=== PATIENT | female | born 1970 | race Caucasian/White ===

== ENCOUNTER 2018-02-12 12:43 | Observation (INO) | payer BC ==
[2018-02-12] MEDS ORDERED: SODIUM CHLORIDE 0.9% 500 ML IV ONE (13:10)
--- NOTE | 2018-02-12 13:10 | ED ---
General Adult HPI - General Chief complaint: Chest Pain Stated complaint: chest pain, SOB Time Seen by Provider: 02/12/18 12:52 Source: patient, RN notes reviewed, old records reviewed Mode of arrival: ambulatory Limitations: no limitations - History of Present Illness Initial comments: 47-year-old female presenting for evaluation of mid chest pain which began yesterday evening. Patient's pain began while at rest. She does report she's been having some stress in her life and believes her pain is secondary to stress. She denies any upper extremity radiation. Denies nausea or vomiting. No diaphoresis. No dyspnea. No lower extremity pain or swelling. Patient has strong family history of coronary artery disease including brother at age 49 with massive [place]. Her parents both have coronary artery disease. She has a previous smoker quit approximately 6 years ago. She was recently diagnosed with hypertension but is not currently on any medication. - Related Data Home Medications Medication Instructions Recorded Confirmed Multivitamins, Thera [Multivitamin 1 tab PO DAILY 02/12/18 02/12/18 (formulary)] Allergies Allergy/AdvReac Type Severity Reaction Status Date / Time No Known Allergies Allergy Verified 02/12/18 13:20 Review of Systems ROS Statement: Those systems with pertinent positive or pertinent negative responses have been documented in the HPI. ROS Other: All systems not noted in ROS Statement are negative. Past Medical History Past Medical History: No Reported History History of Any Multi-Drug Resistant Organisms: None Reported Past Surgical History: Cholecystectomy Past Psychological History: No Psychological Hx Reported Smoking Status: Former smoker Past Alcohol Use History: Occasional Past Drug Use History: None Reported General Exam Limitations: no limitations General appearance: alert, in no apparent distress Head exam: Present: atraumatic, normocephalic Eye exam: Present: normal appearance, PERRL ENT exam: Present: normal exam Neck exam: Present: normal inspection. Absent: tenderness, meningismus Respiratory exam: Present: normal lung sounds bilaterally. Absent: respiratory distress, wheezes Cardiovascular Exam: Present: regular rate, normal rhythm GI/Abdominal exam: Present: soft. Absent: distended, tenderness Extremities exam: Present: normal inspection, normal capillary refill. Absent: pedal edema, calf tenderness Neurological exam: Present: alert, oriented X3, CN II-XII intact. Absent: motor sensory deficit Psychiatric exam: Present: normal affect, normal mood Skin exam: Present: warm, dry, intact. Absent: cyanosis, diaphoretic Course Vital Signs 02/12/18 02/12/18 02/12/18 12:45 13:09 13:37 Temperature 98 F Pulse Rate 104 H 97 86 Respiratory 20 18 18 Rate Blood Pressure 226/95 215/97 206/99 O2 Sat by Pulse 96 98 97 Oximetry 02/12/18 02/12/18 02/12/18 14:08 14:20 15:04 Temperature Pulse Rate 82 83 73 Respiratory 18 18 18 Rate Blood Pressure 202/100 188/91 163/83 O2 Sat by Pulse 98 97 97 Oximetry EKG Findings - EKG Comments: EKG Findings:: EKG: Sinus tachycardia minimal voltage criteria for LVH, artifact in leads 2 and lead 3, no ST segment elevation rate of 102, WV interval 138, QRS duration 94, QTC 463 Medical Decision Making - Medical Decision Making Sexual female presenting for evaluation chest pain. Symptoms have been present for the past 12-16 hours. She did have some pain in her back and initial blood pressure was 226 [address] For this reason CT angiography is obtained of the aorta, this is negative for aortic pathology. Laboratory studies reveal normal white blood cell count, stable hemoglobin, normal electrolytes. Troponin is negative. AST and ALT are mildly elevated, patient has no right upper quadrant pain. This is a nonspecific finding at this time. Patient is given an aspirin and labetalol in the emergency department. Repeat blood pressure is significantly improved. She is nearly chest pain-free. She will be admitted for serial cardiac enzymes and cardiology consultation. Case discussed with Dr. Guadalupe who will accept admission. - Lab Data Result diagrams: 02/12/18 12:56 02/12/18 12:56 Lab Results 02/12/18 02/12/18 02/12/18 Range/Units 12:56 12:56 12:56 WBC 9.1 (3.8-10.6) k/uL RBC 4.60 (3.80-5.40) m/uL Hgb 13.7 (11.4-16.0) gm/dL Hct 38.5 (34.0-46.0) % MCV 83.6 (80.0-100.0) fL MCH 29.9 (25.0-35.0) pg MCHC 35.7 (31.0-37.0) g/dL RDW 12.9 (11.5-15.5) % Plt Count 360 (150-450) k/uL Neutrophils % 64 % Lymphocytes % 27 % Monocytes % 5 % Eosinophils % 2 % Basophils % 1 % Neutrophils # 5.8 (1.3-7.7) k/uL Lymphocytes # 2.5 (1.0-4.8) k/uL Monocytes # 0.5 (0-1.0) k/uL Eosinophils # 0.2 (0-0.7) k/uL Basophils # 0.1 (0-0.2) k/uL PT (9.0-12.0) sec INR (<1.2) APTT (22.0-30.0) sec Sodium 143 (137-145) mmol/L Potassium 3.7 (3.5-5.1) mmol/L Chloride 104 (98-107) mmol/L Carbon Dioxide 23 (22-30) mmol/L Anion Gap 16 mmol/L BUN 12 (7-17) mg/dL Creatinine 0.70 (0.52-1.04) mg/dL Est GFR (CKD-EPI)AfAm >90 (>60 ml/min/1.73 sqM) Est GFR (CKD-EPI)NonAf >90 (>60 ml/min/1.73 sqM) Glucose 167 H (74-99) mg/dL Calcium 10.0 (8.4-10.2) mg/dL Magnesium 1.8 (1.6-2.3) mg/dL Total Bilirubin 0.6 (0.2-1.3) mg/dL AST 87 H (14-36) U/L ALT 123 H (9-52) U/L Alkaline Phosphatase 90 (38-126) U/L Total Creatine Kinase 51 (30-135) U/L CK-MB (CK-2) <0.2 (0.0-2.4) ng/mL CK-MB (CK-2) Rel Index Troponin I <0.012 (0.000-0.034) ng/mL NT-Pro-B Natriuret Pep pg/mL Total Protein 7.9 (6.3-8.2) g/dL Albumin 4.8 (3.5-5.0) g/dL 02/12/18 02/12/18 Range/Units 12:56 12:56 WBC (3.8-10.6) k/uL RBC (3.80-5.40) m/uL Hgb (11.4-16.0) gm/dL Hct (34.0-46.0) % MCV (80.0-100.0) fL MCH (25.0-35.0) pg MCHC (31.0-37.0) g/dL RDW (11.5-15.5) % Plt Count (150-450) k/uL Neutrophils % % Lymphocytes % % Monocytes % % Eosinophils % % Basophils % % Neutrophils # (1.3-7.7) k/uL Lymphocytes # (1.0-4.8) k/uL Monocytes # (0-1.0) k/uL Eosinophils # (0-0.7) k/uL Basophils # (0-0.2) k/uL PT 10.4 (9.0-12.0) sec INR 1.1 (<1.2) APTT 23.7 (22.0-30.0) sec Sodium (137-145) mmol/L Potassium (3.5-5.1) mmol/L Chloride (98-107) mmol/L Carbon Dioxide (22-30) mmol/L Anion Gap mmol/L BUN (7-17) mg/dL Creatinine (0.52-1.04) mg/dL Est GFR (CKD-EPI)AfAm (>60 ml/min/1.73 sqM) Est GFR (CKD-EPI)NonAf (>60 ml/min/1.73 sqM) Glucose (74-99) mg/dL Calcium (8.4-10.2) mg/dL Magnesium (1.6-2.3) mg/dL Total Bilirubin (0.2-1.3) mg/dL AST (14-36) U/L ALT (9-52) U/L Alkaline Phosphatase (38-126) U/L Total Creatine Kinase (30-135) U/L CK-MB (CK-2) (0.0-2.4) ng/mL CK-MB (CK-2) Rel Index Troponin I (0.000-0.034) ng/mL NT-Pro-B Natriuret Pep 54 pg/mL Total Protein (6.3-8.2) g/dL Albumin (3.5-5.0) g/dL Disposition Clinical Impression: Chest pain Disposition: ADMITTED IP TO THIS HOSP Condition: Stable Is patient prescribed a controlled substance at d/c from ED?: No Referrals: None,Stated [Primary Care Provider] - 1-2 days Decision to Admit Reason: Admit from EC Decision Date: 02/12/18 Decision Time: 15:56
[2018-02-12 13:19] LABS: Basophils # (A) 0.1 k/uL (0-0.2); Basophils % (A) 1 %; Eosinophils # (A) 0.2 k/uL (0-0.7); Eosinophils % (A) 2 %; HCT 38.5 % (34.0-46.0); HGB 13.7 gm/dL (11.4-16.0); Lymphocytes # (A) 2.5 k/uL (1.0-4.8); Lymphocytes % (A) 27 %; MCH 29.9 pg (25.0-35.0); MCHC 35.7 g/dL (31.0-37.0); MCV 83.6 fL (80.0-100.0); Mean Platelet Volume 6.5; Monocytes # (A) 0.5 k/uL (0-1.0); Monocytes % (A) 5 %; Neutrophils # (A) 5.8 k/uL (1.3-7.7); Neutrophils % (A) 64 %; Platelet Count 360 k/uL (150-450); RDW 12.9 % (11.5-15.5); WBC 9.1 k/uL (3.8-10.6)
[2018-02-12 13:32] LABS: ALT 123 U/L (9-52); AST 87 U/L (14-36); Albumin 4.8 g/dL (3.5-5.0); Alkaline Phosphatase 90 U/L (38-126); Anion Gap 16 mmol/L; Blood Urea Nitrogen 12 mg/dL (7-17); Carbon Dioxide 23 mmol/L (22-30); Chloride 104 mmol/L (98-107); Glucose 167 mg/dL (74-99); Magnesium 1.8 mg/dL (1.6-2.3); Potassium 3.7 mmol/L (3.5-5.1); Sodium 143 mmol/L (137-145); Total Bilirubin 0.6 mg/dL (0.2-1.3); Total Protein 7.9 g/dL (6.3-8.2)
[2018-02-12 13:38] LABS: INR 1.1 (<1.2); Partial Thromboplastin Time 23.7 sec (22.0-30.0); Prothrombin Time 10.4 sec (9.0-12.0)
[2018-02-12 13:42] LABS: Creatine Kinase 51 U/L (30-135)
[2018-02-12 13:54] LABS: Creatine Kinase MB <0.2 ng/mL (0.0-2.4); Troponin I <0.012 ng/mL (0.000-0.034)
--- NOTE | 2018-02-12 13:55 | XR ---
EXAMINATION TYPE: XR chest 2V DATE OF EXAM: 02/12/2018 COMPARISON: NONE HISTORY: Chest pain TECHNIQUE: Frontal and lateral views of the chest are obtained. FINDINGS: There is no focal air space opacity, pleural effusion, or pneumothorax seen. The cardiac silhouette size is within normal limits. There is an age-indeterminate mid thoracic compression defor mity with vertebral body height loss of approximately 30%. Cholecystectomy clips are noted within the right upper quadrant. IMPRESSION: 1. Age indeterminant compression deformity without comparison radiographs. Correlate with point ismael rness to determine acuity. MR could be performed to evaluate for bone marrow edema there is further c linical concern. 2. No acute cardiopulmonary process.
[2018-02-12] MEDS ORDERED: LABETALOL 5 MG/ML VIAL MDV IVP STA (14:01)
--- NOTE | 2018-02-12 15:48 | CT ---
EXAMINATION TYPE: CT angio thoracic/abd aorta DATE OF EXAM: 02/12/2018 COMPARISON: NONE HISTORY: Chest pain and shortness of breath x2 days. CT DLP: 1990.7 mGycm, Automated exposure control for dose reduction was used. CONTRAST: Performed injected with 100ml mL of Isovue 370. TECHNIQUE: Axial images were obtained at 5 mm thick sections. Reconstructed images are reviewed on [facility] computer in the coronal plane. FINDINGS: Portion of the thyroid visualized is normal. There is a 0.5 cm calcification in the posterior left lung base compatible with a granuloma. Addition al calcified granulomas in the anterior lingula adjacent to the diaphragm measuring 0.5 cm. Lung fiel ds otherwise appear clear. No enlarged mediastinal or hilar adenopathy is evident. The ascending aorta diameter at the level o f the main pulmonary artery is 3.5 cm. The main pulmonary artery diameter at the bifurcation is 2.5 cm. Three-D reconstructed images performed separately on the ventricular computer were performed of the t echnologist and presented. Aorta tapers normally throughout its visualized course. No aneurysmal dilatation is evident. No disse ction is evident. CT sections are obtained through the upper abdomen. There is mild fatty infiltration liver. Mild atro phy of the pancreas is present. Spleen kidneys and inferior vena cava are unremarkable. The gallbladd er is surgically absent. Loops of bowel without contrast are unremarkable. IMPRESSIONS: 1. Normal thoracic and abdominal aorta.
[2018-02-12] MEDS ORDERED: NALOXONE 0.4 MG/ML 1 ML VIAL IV PRN (15:52)
[2018-02-12] MEDS ORDERED: ACETAMINOPHEN TAB 325 MG TAB PO PRN (15:52)
[2018-02-12] MEDS ORDERED: NITROGLYCERIN SL TABS 0.4 MG TAB SUBLINGUAL PRN (15:53)
[2018-02-12] MEDS ORDERED: ASPIRIN 325 MG TAB PO STA (15:54)
[2018-02-12] MEDS ORDERED: amLODIPine 5 MG TAB PO STA (16:51)
[2018-02-12 19:17] LABS: Creatine Kinase 44 U/L (30-135)
[2018-02-12] MEDS: LISINOPRIL-HCTZ 10-12.5 MG 1 EACH TAB PO SCH (19:25)
[2018-02-12 19:30] LABS: Creatine Kinase MB <0.2 ng/mL (0.0-2.4); Troponin I <0.012 ng/mL (0.000-0.034)
[2018-02-12 21:52] VITALS: BMI 42.5
[2018-02-12] MEDS: METOPROLOL TARTRATE 25 MG TAB PO SCH (22:12)
[2018-02-12] MEDS: FAMOTIDINE 20 MG TAB PO SCH (22:12)
--- NOTE | 2018-02-12 22:19 | P.HPIM ---
History of Present Illness H&P Date: 02/12/18 Chief Complaint: Chest tightness Patient is a 47 old female with a significant possible history came to ER with complaints of chest pain which began yesterday evening. Patient's pain began while at rest. Chest pain is mainly in the midsternal region radiating to the back. Patient does have some shortness of breath associated with that. No nausea vomiting. No aggravating or relieving pain patient does have constant pain. Patient also felt rapid heart rate on and off. Patient recently had had cold was turned into bronchitis and did take antibiotics about 2 weeks ago. No fever no chills now. No headache or dizziness or lightheadedness. She does report she's been having some stress in her life and believes her pain is secondary to stress. She denies any upper extremity radiation. No diaphoresis. No dyspnea. No lower extremity pain or swelling. Patient has strong family history of coronary artery disease including brother at age 49 with massive MS. Her parents both have coronary artery disease. She has a previous smoker quit approximately 6 years ago. She was recently diagnosed with hypertension but is not currently on any medication. Initial EKG showed sinus tachycardia with PACs. Repeat EKG done during brief episode showed atrial fibrillation with rapid regular rate. Cardiology was consulted. Review of Systems Constitutional: Patient denies any fever or chills . No generalized weakness or weight loss. Abdomen: Patient denied nausea vomiting and diarrhea and abdominal pain. Cardiovascular: Chest tightness. No short of breath no palpitations. Respiratory: patient denied any cough is from production. No shortness of breath Neurologic: Patient denied any numbness or tingling headache. Musculoskeletal: Patient denies any complaints of joint swelling or deformity. Skin: Negative Psychiatric: Negative Endocrine: No heat or cold intolerance. No recent weight gain. Genitourinary: No dysuria or hematuria. All other 14 point ROS negative except the above Past Medical History Past Medical History: No Reported History History of Any Multi-Drug Resistant Organisms: None Reported Past Surgical History: Cholecystectomy Past Psychological History: No Psychological Hx Reported Smoking Status: Former smoker Past Alcohol Use History: Occasional Past Drug Use History: None Reported Medications and Allergies Home Medications Medication Instructions Recorded Confirmed Type Multivitamins, Thera [Multivitamin 1 tab PO DAILY 02/12/18 02/12/18 History (formulary)] Allergies Allergy/AdvReac Type Severity Reaction Status Date / Time No Known Allergies Allergy Verified 02/12/18 13:20 Physical Exam Vitals: Vital Signs Temp Pulse Resp BP Pulse Ox 02/12/18 16:48 83 18 181/83 97 02/12/18 16:00 87 18 194/91 98 02/12/18 15:04 73 18 163/83 97 02/12/18 14:20 83 18 188/91 97 02/12/18 14:08 82 18 202/100 98 02/12/18 13:37 86 18 206/99 97 02/12/18 13:09 97 18 215/97 98 02/12/18 12:45 98 F 104 H 20 226/95 96 Intake and Output 02/12/18 02/12/18 02/12/18 06:59 14:59 22:59 Other: Weight 109.769 kg Results CBC & Chem 7: 02/12/18 12:56 02/12/18 12:56 Labs: Abnormal Lab Results - Last 24 Hours (Table) 02/12/18 Range/Units 12:56 Glucose 167 H (74-99) mg/dL AST 87 H (14-36) U/L ALT 123 H (9-52) U/L Thrombosis Risk Factor Assmnt - DVT/VTE Prophylaxis DVT/VTE Prophylaxis: Pharmacologic Prophylaxis ordered Assessment and Plan Assessment: Hypertensive urgency Chest tightness due to accelerated hypertension. Rule out acute coronary syndrome Paroxysmal atrial fibrillation possible new onset Hypertension Elevated AST and ALT History of smoking quit 6 years ago Family history of coronary artery disease. DVT prophylaxis Plan: Patient was given a dose of labetalol and Norvasc in the ER. Patient was started on metoprolol and lisinopril/hydrochlorothiazide was added. Continue the telemetry monitoring. Serial EKG and troponins. Cardiology was consulted for further evaluation. Further recommendations based on the clinical course. Time with Patient: Greater than 30
[2018-02-12] MEDS: MAGNESIUM SULFATE-D5W PMX 1 GM in DEXTROSE/WATER 1 100ML.BAG IVPB SCH (22:22)
[2018-02-13] MEDS: MAGNESIUM SULFATE-D5W PMX 1 GM in DEXTROSE/WATER 1 100ML.BAG IVPB SCH (00:03)
[2018-02-13 01:17] VITALS: RESP 16
[2018-02-13 02:33] LABS: Creatine Kinase 38 U/L (30-135)
[2018-02-13 02:46] LABS: Creatine Kinase MB <0.2 ng/mL (0.0-2.4); Troponin I <0.012 ng/mL (0.000-0.034)
[2018-02-13 06:52] LABS: ALT 101 U/L (9-52); AST 65 U/L (14-36); Albumin 4.4 g/dL (3.5-5.0); Alkaline Phosphatase 81 U/L (38-126); Anion Gap 14 mmol/L; Blood Urea Nitrogen 11 mg/dL (7-17); Calcium 9.6 mg/dL (8.4-10.2); Carbon Dioxide 28 mmol/L (22-30); Chloride 101 mmol/L (98-107); Glucose 138 mg/dL (74-99); Magnesium 2.2 mg/dL (1.6-2.3); Potassium 3.9 mmol/L (3.5-5.1); Sodium 143 mmol/L (137-145); Total Bilirubin 0.6 mg/dL (0.2-1.3); Total Protein 6.9 g/dL (6.3-8.2)
[2018-02-13] MEDS: LISINOPRIL-HCTZ 10-12.5 MG 1 EACH TAB PO SCH (08:36)
[2018-02-13] MEDS: METOPROLOL TARTRATE 25 MG TAB PO SCH ×2 (08:36→20:51)
[2018-02-13] MEDS: FAMOTIDINE 20 MG TAB PO SCH ×2 (08:36→20:51)
--- NOTE | 2018-02-13 12:26 | P.CRDCN ---
History of Present Illness Consult date: 02/13/18 Requesting physician: Keith Guadalupe Consult reason: chest pain Chief complaint: Chest pain History of present illness: This is a pleasant 47-year-old female with no prior documented history of hypertension, no hyperlipidemia, nondiabetic, nonsmoker, strong family history of premature coronary artery disease, rare EtOH, who states that she has not seen a physician as an outpatient for several years. She presents to the hospital with symptoms of chest discomfort. She states that the pain is midsternal, occurs when she is at rest, describes it as a heavy feeling, at times it radiates through to her back. Patient also gets symptoms of a flushing feeling, feeling like she may pass out, these symptoms come and go and she's been experiencing them for several years. She states that she did smoke at one time she quit approximately 2 years ago. Her blood pressure on arrival here to 26/95, heart rate 104, 96% on room air, temperature 90.8. S x-ray performed on admission revealed age indeterminate compression deformity. No acute cardiopulmonary process. Thoracic and abdominal aortic CT performed which came back to be normal. Her initial EKG on arrival here showed a sinus tachycardia with a heart rate of 102, rubs appointment to that she had an EKG performed which appears to be a supraventricular tachycardia with nonspecific ST -T wave changes spontaneously the patient converted back to normal sinus rhythm , she did have one further episode of supraventricular tachycardia as well. At the time when she has having the rapid rhythm, she states that it reminded her of the symptoms she gets when she feels a flushed feeling at home, she usually sits down and takes a few very deep breaths and the symptoms subside. She has been experiencing this off and on over several years according to her. At the time of my examination this morning she is currently chest pain-free. Laboratory data was reviewed, CBC is normal, sodium 143, potassium 3.9, BUN 11, creatinine 0.8. A greasy him 2.2. AST 65, ALT 101, 87 and 123 on admission. Troponins are negative 3. Past Medical History Past Medical History: No Reported History History of Any Multi-Drug Resistant Organisms: None Reported Past Surgical History: Cholecystectomy Past Anesthesia/Blood Transfusion Reactions: No Reported Reaction Past Psychological History: No Psychological Hx Reported Smoking Status: Former smoker Past Alcohol Use History: Occasional Past Drug Use History: None Reported Medications and Allergies Home Medications Medication Instructions Recorded Confirmed Type Multivitamins, Thera [Multivitamin 1 tab PO DAILY 02/12/18 02/12/18 History (formulary)] Allergies Allergy/AdvReac Type Severity Reaction Status Date / Time No Known Allergies Allergy Verified 02/12/18 13:20 Physical Exam Vitals: Vital Signs Temp Pulse Pulse Resp BP BP Pulse Ox 02/13/18 12:00 66 16 144/90 97 02/13/18 10:56 16 02/13/18 08:00 98.6 F 72 16 161/105 97 02/13/18 04:00 98 F 78 16 164/102 97 02/13/18 00:00 98 F 78 16 166/108 95 02/12/18 21:00 98.8 F 86 18 165/92 99 02/12/18 20:00 98 F 79 16 194/109 94 L 02/12/18 19:23 85 18 191/105 98 02/12/18 17:29 83 18 170/95 98 02/12/18 16:48 83 18 181/83 97 02/12/18 16:00 87 18 194/91 98 02/12/18 15:04 73 18 163/83 97 02/12/18 14:20 83 18 188/91 97 02/12/18 14:08 82 18 202/100 98 02/12/18 13:37 86 18 206/99 97 02/12/18 13:09 97 18 215/97 98 02/12/18 12:45 98 F 104 H 20 226/95 96 Intake and Output 02/12/18 02/13/18 02/13/18 22:59 06:59 14:59 Other: # Voids 1 1 Weight 108.8 kg 108.8 kg PHYSICAL EXAMINATION: GENERAL: 47-year-old female in no apparent distress at the time of my examination HEENT: Head is atraumatic, normocephalic. Pupils equal, round. Sclera anicteric. Conjunctiva are clear. Mucous membranes of the mouth are moist. Neck is supple. There is no elevated jugular venous pressure.] bruit is heard. HEART EXAMINATION: Heart S1, S2 normal. No murmur or gallop heard. CHEST EXAMINATION: Lungs are clear to auscultation and precussion. No chest wall tenderness is noted on palpation or with deep breathing. ABDOMEN: Soft, nontender. Bowel sounds are heard. No organomegaly noted. EXTREMITIES: 2+ peripheral pulses with no evidence of peripheral edema and no calf tenderness noted. NEUROLOGIC patient is awake, alert and oriented -3. . Results 02/12/18 12:56 02/13/18 05:48 Cardiac Enzymes 02/12/18 02/12/18 02/12/18 Range/Units 12:56 12:56 18:35 AST 87 H (14-36) U/L CK-MB (CK-2) <0.2 <0.2 (0.0-2.4) ng/mL Troponin I <0.012 <0.012 (0.000-0.034) ng/mL 18 02/13/18 Range/Units 01:07 05:48 AST 65 H (14-36) U/L CK-MB (CK-2) <0.2 (0.0-2.4) ng/mL Troponin I <0.012 (0.000-0.034) ng/mL Coagulation 02/12/18 Range/Units 12:56 PT 10.4 (9.0-12.0) sec APTT 23.7 (22.0-30.0) sec CBC 02/12/18 Range/Units 12:56 WBC 9.1 (3.8-10.6) k/uL RBC 4.60 (3.80-5.40) m/uL Hgb 13.7 (11.4-16.0) gm/dL Hct 38.5 (34.0-46.0) % Plt Count 360 (150-450) k/uL Comprehensive Metabolic Panel 18 02/13/18 Range/Units 12:56 05:48 Sodium 143 143 (137-145) mmol/L Potassium 3.7 3.9 (3.5-5.1) mmol/L Chloride 104 101 (98-107) mmol/L Carbon Dioxide 23 28 (22-30) mmol/L BUN 12 11 (7-17) mg/dL Creatinine 0.70 0.81 (0.52-1.04) mg/dL Glucose 167 H 138 H (74-99) mg/dL Calcium 10.0 9.6 (8.4-10.2) mg/dL AST 87 H 65 H (14-36) U/L ALT 123 H 101 H (9-52) U/L Alkaline Phosphatase 90 81 (38-126) U/L Total Protein 7.9 6.9 (6.3-8.2) g/dL Albumin 4.8 4.4 (3.5-5.0) g/dL Current Medications Generic Name Dose Route Start Last Admin Trade Name Freq PRN Reason Stop Dose Admin Acetaminophen 650 mg 02/12/18 15:52 Tylenol Tab PO Q6HR PRN Mild Pain or Fever > 100.5 Famotidine 20 mg 02/12/18 21:00 02/13/18 08:36 Pepcid PO 20 mg BID DAMIR Administration Lisinopril/HCTZ 1 each 02/12/18 18:00 02/13/18 08:36 Zestoretic 10-12.5 PO 1 each DAILY DAMIR Administration Metoprolol Tartrate 25 mg 02/12/18 21:00 02/13/18 08:36 Lopressor PO 25 mg BID DAMIR Administration Naloxone HCl 0.2 mg 02/12/18 15:52 Narcan IV Q2M PRN Opioid Reversal Nitroglycerin 0.4 mg 02/12/18 15:53 Nitrostat SUBLINGUAL Q5M PRN Chest Pain Intake and Output 02/12/18 02/13/18 02/13/18 22:59 06:59 14:59 Other: # Voids 1 1 Weight 108.8 kg 108.8 kg 02/12/18 12:56 02/13/18 05:48 EKG Interpretations (text) Initial EKG shows a sinus tachycardia with nonspecific ST-T wave changes LVH strain pattern Assessment and Plan Plan: Assessment and plan #1 chest pain, troponins negative 3. Initial EKG shows sinus tachycardia with changes of LVH strain pattern and nonspecific ST-T wave changes. #2 supraventricular tachycardia, in normal sinus rhythm now #3 hypertensive urgency #4 strong family history of premature coronary artery disease in her brother 40 years of age Plan Patient was initiated on metoprolol 25 mg by mouth twice a day, lisinopril hydrochlorothiazide, blood pressure is under better control today. We will obtain an echocardiogram with Doppler study. TSH level. Recommend patient undergo a stress echocardiographic study on Thursday and further recommendations then will follow. DNP note has been reviewed, I agree with a documented findings and plan of care. Patient was seen and examined.
[2018-02-13 12:36] LABS: Hepatitis A Antibody IgM Non-Reactive (Non-Reactive); Hepatitis B Core IgM Non-Reactive (Non-Reactive)
--- NOTE | 2018-02-13 14:53 | ECHOF ---
Referral Reason:chest pain , MEASUREMENTS -------- HEIGHT: 160.0 cm WEIGHT: 108.4 kg BP: 161/105 RVIDd: 2.5 cm (< 3.3) IVSd: 1.1 cm (0.6 - 1.1) LVIDd: 4.7 cm (3.9 - 5.3) LVPWd: 1.3 cm (0.6 - 1.1) IVSs: 1.6 cm LVIDs: 4.0 cm LVPWs: 1.8 cm LA Diam: 3.9 cm (2.7 - 3.8) LAESV Index (A-L): 25.89 ml/m Ao Diam: 3.2 cm (2.0 - 3.7) AV Cusp: 1.8 cm (1.5 - 2.6) MV EXCURSION: 12.495 mm (> 18.000) MV EF SLOPE: 52 mm/s (70 - 150) EPSS: 1.0 cm MV E Edward: 0.86 m/s MV DecT: 236 ms MV A Edward: 0.76 m/s MV E/A Ratio: 1.13 FINDINGS -------- Sinus rhythm. This was a technically adequate study. The left ventricular size is normal. There is borderline concentric left ventricular hypertrophy. Overall left ventricular systolic function is normal with, an EF between 55 - 60 %. The right ventricle is normal in size. Normal LA size by volume 22+/-6 ml/m2. The right atrium is normal in size. The aortic valve is trileaflet and appears structurally normal. There is trace mitral regurgitation. The tricuspid valve appears structurally normal. There is no pulmonic regurgitation present. The aortic root size is normal. Normal inferior vena cava with normal inspiratory collapse consistent with estimated right atrial pre ssure of 5 mmHg. There is no pericardial effusion. CONCLUSIONS -------- 1. Sinus rhythm. 2. This was a technically adequate study. 3. The left ventricular size is normal. 4. There is borderline concentric left ventricular hypertrophy. 5. Overall left ventricular systolic function is normal with, an EF between 55 - 60 %. 6. The right ventricle is normal in size. 7. Normal LA size by volume 22+/-6 ml/m2. 8. The right atrium is normal in size. 9. The aortic valve is trileaflet and appears structurally normal. 10. There is trace mitral regurgitation. 11. The tricuspid valve appears structurally normal. 12. There is no pulmonic regurgitation present. 13. The aortic root size is normal. 14. Normal inferior vena cava with normal inspiratory collapse consistent with estimated right atrial pressure of 5 mmHg. 15. There is no pericardial effusion. BUFFER OPERATOR: Dee Dee RDCS
[2018-02-13] MEDS: PROPAFENONE 150 MG TAB PO SCH ×2 (16:30→22:57)
--- NOTE | 2018-02-14 00:13 | P.PN ---
Subjective Progress Note Date: 02/13/18 Principal diagnosis: Chest pain and uncontrolled hypertension Patient is a 47 old female with a significant possible history came to ER with complaints of chest pain which began yesterday evening. Patient's pain began while at rest. Chest pain is mainly in the midsternal region radiating to the back. Patient does have some shortness of breath associated with that. No nausea vomiting. No aggravating or relieving pain patient does have constant pain. Patient also felt rapid heart rate on and off. Patient recently had had cold was turned into bronchitis and did take antibiotics about 2 weeks ago. No fever no chills now. No headache or dizziness or lightheadedness. She does report she's been having some stress in her life and believes her pain is secondary to stress. She denies any upper extremity radiation. No diaphoresis. No dyspnea. No lower extremity pain or swelling. Patient has strong family history of coronary artery disease including brother at age 49 with massive AK. Her parents both have coronary artery disease. She has a previous smoker quit approximately 6 years ago. She was recently diagnosed with hypertension but is not currently on any medication. Initial EKG showed sinus tachycardia with PACs. Repeat EKG done during brief episode showed atrial fibrillation with rapid regular rate. Cardiology was consulted. 02/13/2018 Patient denied any complaints chest pain or shortness of breath today. Blood pressure is fairly controlled. Otherwise patient was seen by cardiology and recommended a stress test in Thursday. 2-D echocardiogram was ordered. Rapid ventricular rate is more likely SVT as per cardiology. Continued on beta blockers. Otherwise no acute overnight issues Liver enzymes are trending down. All other review of systems negative except the above Current medications reviewed Objective - Vital Signs Vital signs: Vital Signs Temp 98.6 F 02/13/18 08:00 Pulse 81 02/13/18 16:00 Resp 16 02/13/18 16:00 BP 142/91 02/13/18 16:00 Pulse Ox 95 02/13/18 16:51 Intake & Output 02/13/18 02/13/18 02/14/18 06:59 18:59 06:59 Intake Total 804 Balance 804 Weight 108.8 kg Intake: Oral 804 Other: # Voids 1 3 1 - Exam PHYSICAL EXAMINATION: Patient is lying in the bed comfortably, no acute distress, awake alert and oriented.. HEENT: Normocephalic. Neck is supple. Pupils reactive. Nostrils clear. Oral cavity is moist. Ears reveal no drainage. Neck reveals no JVD, carotid bruits, or thyromegaly. CHEST EXAMINATION: Trachea is central. Symmetrical expansion. Lung ma clear to auscultation and percussion. CARDIAC: Normal S1, S2 with no gallops. No murmurs ABDOMEN: Soft. Bowel sounds normal. No organomegaly. No abdominal bruits. Extremities: reveal no edema. No clubbing or cyanosis Neurologically awake, alert, oriented x3 with well-coordinated movements. No focal deficits noted Skin: No rash or skin lesions. Psychiatric: Coperative. Nonsuicidal Musculoskeletal: No joint swelling or deformity. Normal range of motion. - Labs CBC & Chem 7: 02/12/18 12:56 02/13/18 05:48 Labs: Abnormal Lab Results - Last 24 Hours (Table) 02/13/18 Range/Units 05:48 Glucose 138 H (74-99) mg/dL AST 65 H (14-36) U/L ALT 101 H (9-52) U/L Assessment and Plan Assessment: Hypertensive urgency. On admission Chest tightness due to accelerated hypertension. Ruled out acute coronary syndrome Super ventricular tachycardia Hypertension Elevated AST and ALT History of smoking quit 6 years ago Family history of coronary artery disease. DVT prophylaxis Plan: Patient was given a dose of labetalol and Norvasc in the ER. Patient was started on metoprolol and lisinopril/hydrochlorothiazide was added. Continue the telemetry monitoring. Serial EKG and troponins were negative. Cardiology has seen the patient and recommended stress test. 2-D echocardiogram showed normal EF. Further recommendations based on the clinical course. Time with Patient: Greater than 30
[2018-02-14] MEDS: FAMOTIDINE 20 MG TAB PO SCH (09:00)
[2018-02-14] MEDS: LISINOPRIL-HCTZ 10-12.5 MG 1 EACH TAB PO SCH (09:00)
[2018-02-14] MEDS: PROPAFENONE 150 MG TAB PO SCH (09:00)
[2018-02-14] MEDS: METOPROLOL TARTRATE 25 MG TAB PO SCH (09:01)
[2018-02-14] MEDS ORDERED: ASPIRIN 81 MG PO SCH (09:45)
[2018-02-14 11:42] VITALS: BP 123/84; PULSE 75; TEMP 98.3
--- NOTE | 2018-02-14 12:17 | PN ---
PROGRESS NOTE Milagro is a 47-year-old lady who was admitted to hospital with severe uncontrolled hypertension. The patient is admitted to the hospital with severe uncontrolled hypertension and episodes of paroxysmal SVT. Since yesterday she has not had any further episodes of cardiac arrhythmia. She is doing well and is free of symptoms. She had mild chest tightness when she initially presented and the plan is to get a stress test done prior to discharge. She had a CT scan of the aorta that was negative for dissection. She had an echo that showed normal LV function. I started her on Rythmol yesterday. She is already on Lopressor and lisinopril along with aspirin. EKG shows sinus rhythm with a corrected QT interval of 450, which has remained unchanged from baseline EKG. EXAM: Today, she is comfortable at rest. Vital signs are stable. There is no jugular venous distention. Chest exam reveals good air entry bilaterally. Heart exam reveals first and second heart sounds. No gallop. Abdomen is soft. Exam of extremities did not reveal any edema. Peripheral pulses are felt. ASSESSMENT: 1. Uncontrolled hypertension. 2. Paroxysmal supraventricular tachycardia. PLAN: Patient is doing well. Will continue with the current medications. Stress test tomorrow and if that looks good, home. MMODL / IJN: [id number] /
--- NOTE | 2018-02-15 00:08 | P.DS ---
Providers Date of admission: 02/12/18 15:52 Expected date of discharge: 02/14/18 Attending physician: Keith Guadalupe Consults: 02/12/18 15:52 Consult Physician Urgent Consulting Provider: Samir Matias Consult Reason/Comments: chest pain Do you want consulting provider notified?: Yes Primary care physician: Stated None Hospital Course: Discharge diagnosis Hypertensive urgency. On admission Chest tightness due to accelerated hypertension. Ruled out acute coronary syndrome Super ventricular tachycardia Hypertension Elevated AST and ALT History of smoking quit 6 years ago Family history of coronary artery disease. DVT prophylaxis Hospital course Patient is a 47 old female with a significant possible history came to ER with complaints of chest pain which began yesterday evening. Patient's pain began while at rest. Chest pain is mainly in the midsternal region radiating to the back. Patient does have some shortness of breath associated with that. No nausea vomiting. No aggravating or relieving pain patient does have constant pain. Patient also felt rapid heart rate on and off. Patient recently had had cold was turned into bronchitis and did take antibiotics about 2 weeks ago. No fever no chills now. No headache or dizziness or lightheadedness. She does report she's been having some stress in her life and believes her pain is secondary to stress. She denies any upper extremity radiation. No diaphoresis. No dyspnea. No lower extremity pain or swelling. Patient has strong family history of coronary artery disease including brother at age 49 with massive ND. Her parents both have coronary artery disease. She has a previous smoker quit approximately 6 years ago. She was recently diagnosed with hypertension but is not currently on any medication. Initial EKG showed sinus tachycardia with PACs. Repeat EKG done during brief episode showed atrial fibrillation with rapid regular rate. Cardiology was consulted. 02/13/2018 Patient denied any complaints chest pain or shortness of breath today. Blood pressure is fairly controlled. Otherwise patient was seen by cardiology and recommended a stress test in Thursday. 2-D echocardiogram was ordered. Rapid ventricular rate is more likely SVT as per cardiology. Continued on beta blockers. Otherwise no acute overnight issues Liver enzymes are trending down. 02/14/2018 Patient denied any complaints of chest pain or short of breath. Patient went into rapid in Rate yesterday. Patient was started on Rythmol as per cardiology recommendations. Otherwise blood pressure is controlled well. Patient is being discharged home and stress test tomorrow as an outpatient. Patient otherwise stable to be discharged home. Plan: Patient was given a dose of labetalol and Norvasc in the ER. Patient was started on metoprolol and lisinopril/hydrochlorothiazide was added. Continue the telemetry monitoring. Patient was started on Rythmol. Serial EKG and troponins were negative. Cardiology has seen the patient and recommended stress test as an outpatient.. 2-D echocardiogram showed normal EF. Patient is stable to discharge home. PHYSICAL EXAMINATION: Patient is lying in the bed comfortably, no acute distress, awake alert and oriented.. HEENT: Normocephalic. Neck is supple. Pupils reactive. Nostrils clear. Oral cavity is moist. Ears reveal no drainage. Neck reveals no JVD, carotid bruits, or thyromegaly. CHEST EXAMINATION: Trachea is central. Symmetrical expansion. Lung ma clear to auscultation and percussion. CARDIAC: Normal S1, S2 with no gallops. No murmurs ABDOMEN: Soft. Bowel sounds normal. No organomegaly. No abdominal bruits. Extremities: reveal no edema. No clubbing or cyanosis Neurologically awake, alert, oriented x3 with well-coordinated movements. No focal deficits noted Skin: No rash or skin lesions. Psychiatric: Coperative. Nonsuicidal Musculoskeletal: No joint swelling or deformity. Normal range of motion. Vital Signs - 24 hr 02/14/18 02/14/18 02/14/18 04:00 08:00 11:21 Temperature Pulse Rate [ 79 80 Pulse Oximetery ] Respiratory 16 16 16 Rate Blood Pressure 165/95 128/86 [Right Arm] O2 Sat by Pulse 98 95 Oximetry 02/14/18 11:42 Temperature 98.3 F Pulse Rate [ 75 Pulse Oximetery ] Respiratory 16 Rate Blood Pressure 123/84 [Right Arm] O2 Sat by Pulse 94 L Oximetry Total time taken greater than 35 minutes including 18 minutes for counseling and coordination of care. Patient Condition at Discharge: Stable Plan - Discharge Summary New Discharge Prescriptions: New Aspirin 81 mg PO DAILY #30 chew Lisinopril-Hctz 10-12.5 mg [Zestoretic 10-12.5] 1 each PO DAILY #30 tab Metoprolol Tartrate [Lopressor] 25 mg PO BID #60 tab Propafenone [Rythmol] 150 mg PO Q8HR tab Continue Multivitamins, Thera [Multivitamin (formulary)] 1 tab PO DAILY Discharge Medication List Multivitamins, Thera [Multivitamin (formulary)] 1 tab PO DAILY 02/12/18 [History ] Aspirin 81 mg PO DAILY #30 chew 02/14/18 [Rx] Lisinopril-Hctz 10-12.5 mg [Zestoretic 10-12.5] 1 each PO DAILY #30 tab [Rx] Metoprolol Tartrate [Lopressor] 25 mg PO BID #60 tab 02/14/18 [Rx] Propafenone [Rythmol] 150 mg PO Q8HR tab 02/14/18 [Rx] Follow up Appointment(s)/Referral(s): Anya Lyons III, MD [STAFF PHYSICIAN] - 1-2 Days None,Stated [Primary Care Provider] - 1-2 days Alejandro Chappell MD [STAFF PHYSICIAN] - 1 Week Discharge Disposition: HOME SELF-CARE
== END 2018-02-14 14:00 | disposition home or self-care (01) ==
LOC: EC 12:43 → 3OBS 15:52 → 6SEL 18:12
PROVIDERS: ADMIT Internal Medicine; ATTEND Internal Medicine
DX: I16.0 Hypertensive urgency (principal); I47.1 Supraventricular tachycardia; I10 Essential (primary) hypertension; R74.0 Nonspecific elevation of levels of transaminase and lactic acid dehydrogenase [LDH]; I48.0 Paroxysmal atrial fibrillation; I49.1 Atrial premature depolarization; Z87.891 Personal history of nicotine dependence; Z82.49 Family history of ischemic heart disease and other diseases of the circulatory system; R06.02 Shortness of breath; Z90.49 Acquired absence of other specified parts of digestive tract; M54.9 Dorsalgia, unspecified
CPT/HCPCS: 99285 ×2; 96361 ×2; 96375 ×2; 96365; 96366 ×2; 36415; 94760; 93005; 93306; 83880; 80053 ×2; 80074; 82550 ×2; 82553 ×2; 83735 ×2; 84443; 84484 ×2; 85025; 85610; 85730; 71046; 75635; 71275; G0378 ×4; J3475 ×2; Q9967

== ENCOUNTER → 2018-03-29 | Outpatient (CLI) | payer BC ==
[2018-03-29 11:40] LABS: HGB 12.2 gm/dL (11.4-16.0); MCH 30.5 pg (25.0-35.0); MCHC 35.9 g/dL (31.0-37.0); Mean Platelet Volume 7.5; Platelet Count 332 k/uL (150-450); RDW 13.1 % (11.5-15.5)
[2018-03-29 11:53] LABS: Anion Gap 10 mmol/L; Blood Urea Nitrogen 13 mg/dL (7-17); Carbon Dioxide 29 mmol/L (22-30); Chloride 101 mmol/L (98-107); Potassium 3.7 mmol/L (3.5-5.1); Sodium 140 mmol/L (137-145)
== END | disposition home or self-care (01) ==
LOC: LABPAT 11:16
PROVIDERS: ATTEND Internal Medicine Cardiovascular Disease
DX: Z01.812 Encounter for preprocedural laboratory examination (principal); I48.0 Paroxysmal atrial fibrillation; I10 Essential (primary) hypertension; R93.1 Abnormal findings on diagnostic imaging of heart and coronary circulation
CPT/HCPCS: 36415; 80051; 82565; 84520; 85027

== ENCOUNTER 2018-04-01 08:46 | Day surgery (SDC) | payer BC ==
[2018-03-29 14:07] VITALS: BMI 39.2
[~2018-04-01 08:46] MED LIST: ALPRAZolam 0.25 MG TAB PO PRN; ALPRAZolam 0.5 MG TAB PO PRN; ASPIRIN 325 MG TAB PO STA; ATORVASTATIN 80 MG TAB PO STA; NITROGLYCERIN SL TABS 0.4 MG TAB SUBLINGUAL PRN; SODIUM CHLORIDE 0.9% 1,000 ML in EMPTY BAG 1 BAG IV ONE
[2018-04-01 09:34] LABS: Glucose,Whole Blood 136 mg/dL (75-99)
[2018-04-01 09:41] VITALS: RESP 16; TEMP 98.4
[2018-04-01] MEDS ORDERED: ENALAPRILAT 1.25 MG/ML 1 ML VIAL ONE (10:42)
[2018-04-01] MEDS ORDERED: MIDAZOLAM 2 MG/2 ML VIAL ONE (10:42)
[2018-04-01] MEDS ORDERED: NITROGLYCERIN OINT 1 INCH/GM PACKET TOPICAL ONE ×2 (10:42→10:45)
[2018-04-01] MEDS ORDERED: LIDOCAINE 2% SYG (PF) 100 MG/5 ML MISCELLANE ONE (10:43)
[2018-04-01] MEDS ORDERED: MIDAZOLAM 2 MG/2 ML VIAL IV ONE (10:44)
[2018-04-01] MEDS ORDERED: ENALAPRILAT 1.25 MG/ML 1 ML VIAL IV ONE (10:44)
[2018-04-01] MEDS ORDERED: hydrALAZINE HCL 20 MG/ML 1 ML VIAL ONE (10:56)
[2018-04-01] MEDS ORDERED: hydrALAZINE HCL 20 MG/ML 1 ML VIAL IVP ONE ×2 (10:59→11:07)
[2018-04-01] MEDS ORDERED: IOPAMIDOL-370 125ML BTL INJ ONE (11:08)
[2018-04-01] MEDS ORDERED: RX INFO: IV CONTRAST WAS GIVEN 1 EACH MISC MISCELLANE PRN (11:26)
[2018-04-01] MEDS ORDERED: SODIUM CHLORIDE 0.9% 1,000 ML IV SCH (11:30)
[2018-04-01] MEDS ORDERED: amLODIPine 10 MG TAB PO ONE (11:45)
[2018-04-01] MEDS ORDERED: amLODIPine 5 MG TAB ONE (11:45)
[2018-04-01] MEDS ORDERED: ISOSORBIDE MONONITRATE ER 30 MG TAB.ER.24H PO ONE (11:45)
--- NOTE | 2018-04-01 12:03 | CC ---
CARDIAC CATHETERIZATION REPORT INDICATION: Exertional chest pain in a patient with abnormal stress echo. PROCEDURE NOTE: After obtaining informed consent, left heart catheterization and coronary angiogram were performed via the right femoral artery using standard Melvin catheters. Patient tolerated the procedure well without any obvious immediate complications. A femoral angiogram was obtained and Angio-Seal was deployed for hemostasis. Patient received moderate conscious sedation. Total sedation time was 19 minutes. FINDINGS: 1. HEMODYNAMICS: Left ventricular end-diastolic pressure is 18 mm. There is no significant gradient across the aortic valve. 2. LEFT VENTRICULOGRAM: Left ventriculogram is not performed. 3. ANGIOGRAPHIC DATA: 4. LEFT MAIN CORONARY ARTERY: Left main coronary artery is a normal-sized vessel and is free of stenosis. Divides into left anterior descending coronary artery and circumflex coronary artery. LAD shows a 95% stenosis in its proximal part just at the origin of the large diagonal branch and the lesion extends into the ostial portion of the diagonal which at its worse seems to be another 80%-90% stenosis. Circumflex coronary artery is a nondominant vessel that shows a 70% - 80% focal stenosis in one of the OM branches. Right coronary artery is a large dominant vessel that shows mild atherosclerotic plaque without focal hemodynamically significant lesions. 1. All the 3 coronaries appear calcified. CONCLUSION: Severe two-vessel coronary artery disease as described above. I reviewed angiographic data with Dr. Uriarte, the on-call college physics instructor who felt that angioplasty of the LAD will be technically challenging and we may lose the diagonal in the process and patient is better off going for surgery. I consulted Dr. Mojica, the cardiothoracic surgeon to evaluate the patient. In the meantime, will treat the patient with optimal medical therapy including aspirin, nitrates, beta blockers and start her on statin. Blood pressure is somewhat poorly controlled and we gave her Apresoline in the animal laboratory technician along with IV Vasotec and nitro paste. I am going to add Norvasc to the lisinopril, hydrochlorothiazide, and metoprolol that she is on. I am going to stop the Rythmol given the significant obstructive CAD she has. MMODL / IJN: [id number] /
[2018-04-01 12:41] LABS: Basophils # (A) 0.1 k/uL (0-0.2); Basophils % (A) 1 %; Eosinophils # (A) 0.1 k/uL (0-0.7); Eosinophils % (A) 1 %; HCT 35.3 % (34.0-46.0); HGB 12.5 gm/dL (11.4-16.0); Lymphocytes % (A) 24 %; MCH 29.7 pg (25.0-35.0); MCHC 35.4 g/dL (31.0-37.0); MCV 83.7 fL (80.0-100.0); Mean Platelet Volume 6.1; Monocytes # (A) 0.3 k/uL (0-1.0); Monocytes % (A) 4 %; Neutrophils # (A) 5.7 k/uL (1.3-7.7); Neutrophils % (A) 69 %; Platelet Count 345 k/uL (150-450); RBC 4.21 m/uL (3.80-5.40); RDW 13.2 % (11.5-15.5); WBC 8.3 k/uL (3.8-10.6)
[2018-04-01] MEDS ORDERED: glipiZIDE 5 MG TAB PO ONE (12:45)
[2018-04-01 12:49] LABS: INR 1.1 (<1.2); Partial Thromboplastin Time 24.1 sec (22.0-30.0); Prothrombin Time 10.5 sec (9.0-12.0)
[2018-04-01 12:51] LABS: Glucose,Whole Blood 113 mg/dL (75-99)
[2018-04-01] MEDS ORDERED: LISINOPRIL-HCTZ 10-12.5 MG 1 EACH TAB PO STA (12:51)
[2018-04-01 13:03] LABS: ALT 59 U/L (9-52); AST 41 U/L (14-36); Albumin 4.4 g/dL (3.5-5.0); Alkaline Phosphatase 77 U/L (38-126); Anion Gap 9 mmol/L; Blood Urea Nitrogen 11 mg/dL (7-17); Calcium 9.6 mg/dL (8.4-10.2); Carbon Dioxide 25 mmol/L (22-30); Chloride 107 mmol/L (98-107); Cholesterol 216 mg/dL (<200); Glucose 116 mg/dL (74-99); HDL Cholesterol 51 mg/dL (40-60); LDL Cholesterol,Calculated 132 mg/dL (0-99); Magnesium 1.8 mg/dL (1.6-2.3); Potassium 3.9 mmol/L (3.5-5.1); Sodium 141 mmol/L (137-145); Total Bilirubin 0.5 mg/dL (0.2-1.3); Total Protein 7.2 g/dL (6.3-8.2); Triglycerides 163 mg/dL (<150)
[2018-04-01] MEDS ORDERED: CLOPIDOGREL 75 MG TAB PO SCH (14:30)
[2018-04-01] MEDS ORDERED: ACETAMINOPHEN TAB 325 MG TAB PO STA (14:44)
[2018-04-01] MEDS ORDERED: CLOPIDOGREL 75 MG TAB ONE (14:45)
[2018-04-01 16:53] VITALS: BP 148/74; PULSE 68
[2018-04-01 19:26] LABS: Hepatitis A Antibody IgM Non-Reactive (Non-Reactive); Hepatitis B Core IgM Non-Reactive (Non-Reactive)
[2018-04-01 20:17] LABS: Hemoglobin A1C 5.9 % (4.0-6.0)
[2018-04-02] MEDS ORDERED: CHLORHEXIDINE GLUCONATE 15 ML CUP MUCOUS MEM ONE (05:00)
[2018-04-02] MEDS ORDERED: glipiZIDE 5 MG TAB PO SCH (07:30)
[2018-04-02] MEDS ORDERED: amLODIPine 10 MG TAB PO SCH (09:00)
[2018-04-02] MEDS ORDERED: ISOSORBIDE MONONITRATE ER 30 MG TAB.ER.24H PO SCH (09:00)
[2018-04-02] MEDS ORDERED: ATORVASTATIN 40 MG TAB PO SCH (09:00)
== END 2018-04-01 16:53 | disposition home or self-care (01) ==
LOC: CATHCVL 08:46
PROVIDERS: ATTEND Internal Medicine Cardiovascular Disease
DX: I25.10 Atherosclerotic heart disease of native coronary artery without angina pectoris (principal); R94.39 Abnormal result of other cardiovascular function study; I10 Essential (primary) hypertension; I48.0 Paroxysmal atrial fibrillation; E11.9 Type 2 diabetes mellitus without complications; Z82.49 Family history of ischemic heart disease and other diseases of the circulatory system; Z79.84 Long term (current) use of oral hypoglycemic drugs; Z79.82 Long term (current) use of aspirin; Z79.899 Other long term (current) drug therapy; Z72.0 Tobacco use
CPT/HCPCS: 93458; 80061; 80053; 80074; 84443; 83735; 85025; 85610; 85730; 81025; 83036; C1760; C1894; C1769; J2250; J0360; J2001; Q9967

== ENCOUNTER 2018-04-05 07:18 | Day surgery (SDC) | payer BC ==
[2018-04-05 07:57] LABS: Glucose,Whole Blood 149 mg/dL (75-99)
[2018-04-05 08:01] LABS: Basophils # (A) 0.1 k/uL (0-0.2); Basophils % (A) 1 %; Eosinophils # (A) 0.2 k/uL (0-0.7); Eosinophils % (A) 2 %; HCT 35.5 % (34.0-46.0); HGB 12.3 gm/dL (11.4-16.0); Lymphocytes # (A) 2.4 k/uL (1.0-4.8); Lymphocytes % (A) 25 %; MCH 29.8 pg (25.0-35.0); MCHC 34.6 g/dL (31.0-37.0); MCV 86.1 fL (80.0-100.0); Mean Platelet Volume 6.2; Monocytes # (A) 0.5 k/uL (0-1.0); Monocytes % (A) 5 %; Neutrophils # (A) 6.4 k/uL (1.3-7.7); Neutrophils % (A) 66 %; Platelet Count 374 k/uL (150-450); RBC 4.13 m/uL (3.80-5.40); RDW 13.3 % (11.5-15.5); WBC 9.7 k/uL (3.8-10.6)
[2018-04-05 08:11] LABS: Anion Gap 15 mmol/L; Blood Urea Nitrogen 14 mg/dL (7-17); Calcium 9.2 mg/dL (8.4-10.2); Carbon Dioxide 19 mmol/L (22-30); Chloride 104 mmol/L (98-107); Glucose 145 mg/dL (74-99); Sodium 138 mmol/L (137-145)
[2018-04-05] MEDS ORDERED: diphenhydrAMINE 50 MG/ML 1 ML VIAL IVP ONE (09:55)
[2018-04-05] MEDS ORDERED: MIDAZOLAM 2 MG/2 ML VIAL IVP ONE (09:55)
[2018-04-05] MEDS ORDERED: LIDOCAINE 1% INJ 10MG/ML (20 ML MDV) SQ ONE (09:58)
[2018-04-05] MEDS ORDERED: BIVALIRUDIN 250 MG in SODIUM CHLORIDE 0.9% 35 ML IV ONE (10:03)
[2018-04-05] MEDS ORDERED: BIVALIRUDIN BOLUS 250 MG/50 ML IV ONE (10:03)
[2018-04-05] MEDS: NITROGLYCERIN 1000MCG/10ML SYRINGE INTRACORON ONE ×3 (10:05→10:48)
[2018-04-05] MEDS ORDERED: IOPAMIDOL-370 100ML BTL INJ ONE ×2 (10:24→10:55)
[2018-04-05] MEDS ORDERED: BIVALIRUDIN 250 MG in SODIUM CHLORIDE 0.9% 40 ML IV ONE (10:37)
[2018-04-05] MEDS ORDERED: TICAGRELOR 90 MG TAB PO ONE (10:55)
[2018-04-05] MEDS ORDERED: MAG HYDROX/AL HYDROX/SIMETH 30 ML CUP PO PRN (11:09)
[2018-04-05] MEDS ORDERED: ATROPINE SULFATE 0.1 MG/ML 10ML SYRINGE IV PRN (11:09)
[2018-04-05] MEDS ORDERED: RX INFO: IV CONTRAST WAS GIVEN 1 EACH MISC MISCELLANE PRN (11:09)
[2018-04-05] MEDS ORDERED: NITROGLYCERIN SL TABS 0.4 MG TAB SUBLINGUAL PRN ×2 (11:09→15:21)
[2018-04-05] MEDS ORDERED: ZOLPIDEM 5 MG TAB PO PRN (11:09)
[2018-04-05] MEDS: SODIUM CHLORIDE 0.9% 1,000 ML IV SCH (11:15)
[2018-04-05] MEDS ORDERED: MORPHINE SULFATE 4 MG/ML SYRINGE IVP PRN (11:22)
--- NOTE | 2018-04-05 12:07 | HP ---
HISTORY AND PHYSICAL Mrs. Kan was seen and evaluated by me on last on 04/01/2018. This lady underwent a cardiac cath that was performed by Dr. Chappell, which revealed a significant LAD and diagonal bifurcation lesion. She has a right dominant system. No significant disease in the main circumflex, but the groove branch had narrowing but the branch was small in size and distribution. She was given options of both bypass surgery and PCI. After some deliberation, she wished to proceed with PCI. I reviewed with the patient and family the rationale, risks, benefits, and options. She was brought in for the procedure electively today. PAST MEDICAL HISTORY: Includes type 2 diabetes, hypertension, hyperlipidemia, and obesity. PHYSICAL EXAMINATION: Blood pressure was 130/70, pulse rate was 68 per minute. There was no JVD or carotid bruit. S1-S2 heard normally but distantly. Lungs are clear. Abdomen is soft, nontender. Right groin was clean and dry with a small area of tenderness. Pulses were good. Central nervous system was unremarkable. EKG revealed sinus rhythm without acute changes. IMPRESSION: 1. Unstable angina with abnormal cardiac cath with LAD and diagonals tight, 80%-90% bifurcation lesions with right-dominant system, no significant disease in RCA. Groove branch of circumflex had disease. 2. Hypertension. 3. Type 2 diabetes on oral lesion. 4. Hyperlipidemia. 5. Hypercholesterolemia. RECOMMENDATION: Patient is advised elective PCI of a bifurcation lesion involving the LAD and diagonal. Risks, benefits, options, rationale explained to the patient and family and the procedure will be performed today. MMODL / IJN: [id number] /
--- NOTE | 2018-04-05 13:13 | PTCA ---
PERCUTANEOUSTRANS CORORONARY ANGIOGRAPHY DATE OF SERVICE: 04/05/2018. PROCEDURE: 1. PTCA and stenting of mid LAD with a drug-eluting stent. 2. PTCA of LAD and diagonal with a kissing balloon technique. Provisional stenting of a bifurcation lesion was performed. PERFORMED BY: Dr. Lexi Matias. Moderate conscious sedation time was 60 minutes. Patient was given a combination of Versed and Benadryl and oxygen saturation. Hemodynamics and EKG were monitored closely. CLINICAL INFORMATION: Mrs. Milagro Tomas is a 47-year-old lady with obesity, hypertension, type 2 diabetes mellitus, who was evaluated by Dr. Chappell and underwent a cardiac cath that was performed on last , which revealed a bifurcation lesion in the LAD and a major good-sized diagonal branch. RCA was free of significant disease. There was groove branch stenosis of the circumflex, which was a small distribution vessel. She was initially considered for aortocoronary bypass surgery, but after due discussion, both options were placed and patient wished to proceed with bifurcation stenting and if she has restenoses she would then consider surgery. I discussed with this patient in person and by phone at length, gave her the rationale risks, benefits, options and she understood all details and wished to proceed. PROCEDURE NOTE: Under local anesthesia and strict aseptic precautions, an 8-Algerian introducer was placed in the left femoral artery. I used a standard 8-Algerian left Melvin type guide catheter to cannulate the left coronary artery. Two whisper wires were advanced and positioned both in the LAD and diagonal. I pre-dilated the LAD lesion with a 2.25 caliber 15 mm long NC Trek balloon. This was dilated at 12 atmospheres. I then deployed a 2.0 caliber Joni Resolute drug-eluting stent of 2.0 caliber and 12 mm length within the LAD. I then performed a wire exchange. I took the wire from the diagonal out and advanced this into the LAD and the LAD wire was deflected and advanced into the diagonal. I then used a 2.25 caliber 15 mm NC Trek balloon in the LAD and a 2.25 caliber NC Euphora balloon in the diagonal. Both balloons were positioned and they were inflated simultaneously. The diagonal balloon was inflated 8 seconds and then the LAD balloon was inflated. Both were inflated to 12 atmospheres, which was nominal and both were 2.25 caliber balloons. The patient had chest pain and EKG changes. Excellent angiographic result without complication was achieved. The wires and the balloons were taken out. The patient received additional 90 mg of Brilinta. She had already been on Plavix for 5 days. I also gave her Angiomax bolus and infusion. The sheath in the left groin was taken out and an Angio-Seal device used to secure hemostasis and she was sent to the room in a stable condition. Excellent angiographic result without complication was noted and results were discussed with the patient and family. I expect that she will be discharged tomorrow if she remains stable. MMODL / IJN: [id number] /
--- NOTE | 2018-04-05 13:19 | LTR ---
April 05, 2018 Re: Milagro Tomas Dear Dr. Ayers: Thank you for the opportunity to participate in the care of Mr. Milagro Tomas. This lady underwent cardiac cath by Dr. Chappell last . We brought in here for elective bifurcation LAD diagonal stenting. Please find enclosed my detailed report for your records. She has a drug-eluting stent in the LAD and a provisional stenting was performed with a kissing balloon technique. Excellent angiographic result without complication was achieved. I expect she will be discharged tomorrow if she remains stable. Thank you for your referral and please do call for questions. With kindest regards. Sincerely yours, MD MAUREEN Lan / SCARLET: [id number] /
[2018-04-05] MEDS ORDERED: ACETAMINOPHEN TAB 325 MG TAB PO PRN (15:28)
[2018-04-05 15:48] VITALS: BMI 38.7
[2018-04-05 16:38] LABS: Glucose,Whole Blood 190 mg/dL (75-99)
[2018-04-05 20:25] VITALS: RESP 16
[2018-04-05] MEDS ORDERED: LISINOPRIL-HCTZ 10-12.5 MG 1 EACH TAB PO SCH (21:00)
[2018-04-05] MEDS ORDERED: ATORVASTATIN 80 MG TAB PO SCH (21:00)
[2018-04-05] MEDS: METOPROLOL TARTRATE 25 MG TAB PO SCH (21:03)
[2018-04-05 21:17] LABS: Glucose,Whole Blood 179 mg/dL (75-99)
[2018-04-06 04:11] VITALS: PULSE 86
[2018-04-06] MEDS: SODIUM CHLORIDE 0.9% 1,000 ML IV SCH (05:13)
[2018-04-06 05:40] LABS: Glucose,Whole Blood 144 mg/dL (75-99)
[2018-04-06 06:30] LABS: Basophils # (A) 0.1 k/uL (0-0.2); Basophils % (A) 1 %; Eosinophils # (A) 0.2 k/uL (0-0.7); Eosinophils % (A) 2 %; HCT 33.2 % (34.0-46.0); HGB 11.3 gm/dL (11.4-16.0); Lymphocytes # (A) 1.5 k/uL (1.0-4.8); Lymphocytes % (A) 19 %; MCH 29.3 pg (25.0-35.0); MCHC 34.1 g/dL (31.0-37.0); MCV 85.8 fL (80.0-100.0); Mean Platelet Volume 6.4; Monocytes # (A) 0.5 k/uL (0-1.0); Monocytes % (A) 6 %; Neutrophils # (A) 5.7 k/uL (1.3-7.7); Neutrophils % (A) 70 %; Platelet Count 342 k/uL (150-450); RBC 3.87 m/uL (3.80-5.40); RDW 13.2 % (11.5-15.5); WBC 8.2 k/uL (3.8-10.6)
[2018-04-06 07:04] LABS: Anion Gap 7 mmol/L; Blood Urea Nitrogen 9 mg/dL (7-17); Calcium 9.4 mg/dL (8.4-10.2); Carbon Dioxide 28 mmol/L (22-30); Chloride 102 mmol/L (98-107); Glucose 122 mg/dL (74-99); Potassium 3.7 mmol/L (3.5-5.1); Sodium 137 mmol/L (137-145)
[2018-04-06] MEDS ORDERED: glipiZIDE 5 MG TAB PO SCH (07:30)
[2018-04-06] MEDS ORDERED: POTASSIUM CHLORIDE ER 20 MEQ TAB.ER PO STA (07:42)
[2018-04-06 08:16] VITALS: BP 147/84; TEMP 98.6
[2018-04-06] MEDS: METOPROLOL TARTRATE 25 MG TAB PO SCH (08:52)
[2018-04-06] MEDS ORDERED: amLODIPine 10 MG TAB PO SCH (09:00)
[2018-04-06] MEDS ORDERED: TICAGRELOR 90 MG TAB PO SCH (09:00)
[2018-04-06] MEDS ORDERED: ASPIRIN 81 MG PO SCH ×2 (09:00)
--- NOTE | 2018-04-06 09:08 | PN ---
PROGRESS NOTE Mrs. Milagro Tomas was admitted yesterday electively for a PCI of a complex bifurcation LAD diagonal lesion. She has history of type 2 diabetes, obesity, hypertension, and hyperlipidemia. The procedure was performed yesterday from the left femoral approach. A drug-eluting stent was deployed in the LAD and diagonal was dilated by a kissing balloon technique. Excellent angiographic result was achieved without complication. Postprocedure course is uneventful. She is doing well at the time of my evaluation this morning. Her EKG and laboratory data are unremarkable. Blood pressure is 130/60, pulse rate is 78 per minute. S1, S2 heard normally. Lungs are clear. Abdomen and lower extremity exam unchanged. Both groins are clean and dry with good pulse. Plan is to increase activity and discharged today and she will see Dr. Chappell within a week. Advised to be on Brilinta and aspirin. I gave her prescriptions and gave her discharge instructions regarding activity, diet and medications. MMODL / IJN: [id number] /
[2018-04-06] MEDS ORDERED: MULTIVITAMINS, THERA 1 EACH TAB PO SCH (12:00)
== END 2018-04-06 09:07 | disposition home or self-care (01) ==
LOC: CATHCVL 07:18 → 6SEL 15:00 → CATHCVL 04-06 09:07
PROVIDERS: ATTEND Internal Medicine Interventional Cardiology
DX: I25.10 Atherosclerotic heart disease of native coronary artery without angina pectoris (principal); I10 Essential (primary) hypertension; Z72.0 Tobacco use; Z82.49 Family history of ischemic heart disease and other diseases of the circulatory system; I48.0 Paroxysmal atrial fibrillation; E11.9 Type 2 diabetes mellitus without complications; Z79.84 Long term (current) use of oral hypoglycemic drugs; Z79.82 Long term (current) use of aspirin; Z79.899 Other long term (current) drug therapy
CPT/HCPCS: 92921; 80048 ×2; 85025 ×2; 81025; C9600; C1769 ×4; C1725 ×2; C1894; C1887; C1874; C1760; J2250; J2270; J1200; J2001; J0583; Q9967

== ENCOUNTER → 2018-04-12 | Outpatient (CLI) | payer BC ==
--- NOTE | 2018-04-12 11:46 | MM ---
Reason for exam: screening (asymptomatic). Baseline mammogram. History: Family history of breast cancer in paternal grandmother. Physical Findings: Nurse did not find any significant physical abnormalities on exam. MG Screening Mammo w CAD Bilateral CC and MLO view(s) were taken. There are scattered fibroglandular densities. Focal asymmetry 6 o'clock middle depth left breast. Otherwise, no discrete abnormality. These results were verbally communicated with the patient and result sheet given to the patient on 04/12/18. ASSESSMENT: Incomplete: need additional imaging evaluation, BI-RAD 0 RECOMMENDATION: Special view mammogram of the left breast.
--- NOTE | 2018-04-12 11:47 | MM ---
Reason for exam: additional evaluation requested from abnormal screening. History: Family history of breast cancer in paternal grandmother. Physical Findings: Breast exam preformed at baseline screening. MG Work Up Mamm w CAD LT Spot compression CC, spot compression MLO, and LM view(s) were taken of the left breast. There are scattered fibroglandular densities. Focal asymmetry 6 o'clock middle depth left breast. Otherwise, no discrete abnormality. These results were verbally communicated with the patient and result sheet given to the patient on 04/12/18. ASSESSMENT: Incomplete: need additional imaging evaluation, BI-RAD 0 RECOMMENDATION: Ultrasound of the left breast.
--- NOTE | 2018-04-12 11:50 | USB ---
Reason for exam: additional evaluation requested from abnormal screening. History: Family history of breast cancer in paternal grandmother. US Breast Workup Limited LT Left limited breast ultrasound including focal area of concern, retroareolar and axilla demonstrates a 0.8 x 1.3 x 0.5cm oval, hypoechoic lesion at 5 o'clock possibly in the intercostal space may be artifact, 6 month follow up recommended and a 0.3 x 0.4 x 0.2cm oval, cystic lesion at 7 o'clock may correspond to the mammographic finding. These results were verbally communicated with the patient and result sheet given to the patient on 04/12/18. ASSESSMENT: Probably benign, BI-RAD 3 RECOMMENDATION: Follow-up diagnostic mammogram and ultrasound of the left breast in 6 months.
== END | disposition home or self-care (01) ==
LOC: RADMAMWWP 09:24
PROVIDERS: ATTEND Family Medicine
DX: Z12.31 Encounter for screening mammogram for malignant neoplasm of breast (principal); R92.8 Other abnormal and inconclusive findings on diagnostic imaging of breast
CPT/HCPCS: 77065; 77067

== ENCOUNTER → 2018-09-21 | Outpatient (CLI) | payer BC | END | disposition home or self-care (01) | LOC: LABWHC1 07:37 | PROVIDERS: ATTEND Internal Medicine Cardiovascular Disease | DX: E78.2 Mixed hyperlipidemia (principal) | CPT/HCPCS: 36415; 80061; 84450; 84460 ==

== ENCOUNTER 2019-01-11 12:12 | Observation (INO) | payer BC ==
[2019-01-11] MEDS ORDERED: ASPIRIN 81 MG PO STA (12:40)
[2019-01-11] MEDS ORDERED: NITROGLYCERIN OINT 1 INCH/GM PACKET TOPICAL STA (12:40)
--- NOTE | 2019-01-11 12:43 | ED ---
General Adult HPI - General Chief complaint: Chest Pain Stated complaint: Chest pain Time Seen by Provider: 01/11/19 12:15 Source: patient, RN notes reviewed Mode of arrival: ambulatory Limitations: no limitations - History of Present Illness Initial comments: Patient is a pleasant 48-year-old female presenting to the emergency Department with complaints of chest discomfort. Symptoms have been intermittent over the past couple of days. Symptoms are exertional. Patient has associated exertional dyspnea. Discomfort feels tight. Patient states there is some mild associated sweating. Unclear if there is nausea. Patient is unclear she has similar symptoms previously however does have history of 2 previous stents. No leg pain or leg swelling. Patient is currently symptom-free. Symptoms had the worst are moderate rated 5 or 6/10. - Related Data Home Medications Medication Instructions Recorded Confirmed Multivitamins, Thera [Multivitamin 1 tab PO DAILY@49902/12/18 01/11/19 (formulary)] Lisinopril-Hctz 10-12.5 mg 1 tab PO DAILY@49904/05/18 01/11/19 [Zestoretic 10-12.5] Aspirin 81 mg PO DAILY@49901/11/19 01/11/19 Atorvastatin [Lipitor] 80 mg PO DAILY@169901/11/19 01/11/19 Clopidogrel Bisulfate [Plavix] 75 mg PO DAILY@49901/11/19 01/11/19 Desvenlafaxine Succinate [Pristiq 50 mg PO DAILY@202901/11/19 01/11/19 ER] Empagliflozin/Metformin HCl 1 tab PO DAILY@49901/11/19 01/11/19 [Synjardy Xr 12.5-1,000 mg Tab] Isosorbide Mononitrate ER [Imdur] 30 mg PO DAILY@49901/11/19 01/11/19 Metoprolol Tartrate [Lopressor] 25 mg PO BID@0500,169901/11/19 01/11/19 amLODIPine [Norvasc] 10 mg PO DAILY@169901/11/19 01/11/19 Previous Rx's Medication Instructions Recorded Nitroglycerin Sl Tabs [Nitrostat] 0.4 mg SUBLINGUAL Q5M PRN #1 bottle 04/01/18 Allergies Allergy/AdvReac Type Severity Reaction Status Date / Time No Known Allergies Allergy Verified 01/11/19 12:45 Review of Systems ROS Statement: Those systems with pertinent positive or pertinent negative responses have been documented in the HPI. ROS Other: All systems not noted in ROS Statement are negative. Constitutional: Denies: fever Eyes: Denies: eye pain ENT: Denies: ear pain Respiratory: Reports: as per HPI Cardiovascular: Reports: chest pain Endocrine: Reports: fatigue Gastrointestinal: Denies: abdominal pain Genitourinary: Denies: dysuria Musculoskeletal: Denies: back pain Skin: Denies: rash Neurological: Denies: weakness Past Medical History Past Medical History: Diabetes Mellitus, Hyperlipidemia, Hypertension History of Any Multi-Drug Resistant Organisms: None Reported Past Surgical History: Cholecystectomy, Heart Catheterization, Heart Catheterization With Stent Past Anesthesia/Blood Transfusion Reactions: No Reported Reaction Past Psychological History: Anxiety, Depression Smoking Status: Former smoker Past Alcohol Use History: Occasional Past Drug Use History: None Reported General Exam Limitations: no limitations General appearance: alert, in no apparent distress Head exam: Present: atraumatic Eye exam: Present: normal appearance Neck exam: Present: normal inspection Respiratory exam: Present: normal lung sounds bilaterally. Absent: chest wall tenderness Cardiovascular Exam: Present: regular rate, normal rhythm Expanded Peripheral pulses: 2+: Radial (R), Radial (L), Dorsalis Pedis (R), Dorsalis Pedis (L) GI/Abdominal exam: Present: soft. Absent: tenderness Extremities exam: Present: normal inspection. Absent: pedal edema, calf tenderness Neurological exam: Present: alert Psychiatric exam: Present: normal affect, normal mood Skin exam: Present: normal color Course Vital Signs 01/11/19 01/11/19 12:16 13:30 Temperature 97.7 F Pulse Rate 89 89 Respiratory 20 18 Rate Blood Pressure 158/77 116/78 O2 Sat by Pulse 97 98 Oximetry EKG Findings - EKG Comments: EKG Findings:: Normal sinus rhythm at 83. SC 144. QRS 96. QT 382. QTC 448. Normal axis. Normal QRS. No acute ST change. Medical Decision Making - Medical Decision Making Patient reevaluated and resting comfortably in bed. Patient symptom-free. Patient and family updated on results and plan. Dr. Sun has been paged for admission. - Lab Data Result diagrams: 01/11/19 13:00 01/11/19 13:00 Lab Results 01/11/19 01/11/19 01/11/19 Range/Units 13:00 13:00 13:00 WBC 8.5 (3.8-10.6) k/uL RBC 4.37 (3.80-5.40) m/uL Hgb 12.7 (11.4-16.0) gm/dL Hct 38.0 (34.0-46.0) % MCV 87.0 (80.0-100.0) fL MCH 29.1 (25.0-35.0) pg MCHC 33.5 (31.0-37.0) g/dL RDW 13.0 (11.5-15.5) % Plt Count 391 (150-450) k/uL Neutrophils % 70 % Lymphocytes % 21 % Monocytes % 6 % Eosinophils % 2 % Basophils % 1 % Neutrophils # 5.9 (1.3-7.7) k/uL Lymphocytes # 1.8 (1.0-4.8) k/uL Monocytes # 0.5 (0-1.0) k/uL Eosinophils # 0.1 (0-0.7) k/uL Basophils # 0.1 (0-0.2) k/uL PT 10.1 (9.0-12.0) sec INR 0.9 (<1.2) APTT 23.0 (22.0-30.0) sec Sodium 140 (137-145) mmol/L Potassium 3.6 (3.5-5.1) mmol/L Chloride 101 (98-107) mmol/L Carbon Dioxide 25 (22-30) mmol/L Anion Gap 14 mmol/L BUN 13 (7-17) mg/dL Creatinine 0.71 (0.52-1.04) mg/dL Est GFR (CKD-EPI)AfAm >90 (>60 ml/min/1.73 sqM) Est GFR (CKD-EPI)NonAf >90 (>60 ml/min/1.73 sqM) Glucose 164 H (74-99) mg/dL Calcium 10.3 H (8.4-10.2) mg/dL Magnesium 1.8 (1.6-2.3) mg/dL Total Bilirubin 0.4 (0.2-1.3) mg/dL AST 44 H (14-36) U/L ALT 67 H (9-52) U/L Alkaline Phosphatase 96 (38-126) U/L Troponin I (0.000-0.034) ng/mL Total Protein 8.1 (6.3-8.2) g/dL Albumin 5.1 H (3.5-5.0) g/dL 01/11/19 Range/Units 13:00 WBC (3.8-10.6) k/uL RBC (3.80-5.40) m/uL Hgb (11.4-16.0) gm/dL Hct (34.0-46.0) % MCV (80.0-100.0) fL MCH (25.0-35.0) pg MCHC (31.0-37.0) g/dL RDW (11.5-15.5) % Plt Count (150-450) k/uL Neutrophils % % Lymphocytes % % Monocytes % % Eosinophils % % Basophils % % Neutrophils # (1.3-7.7) k/uL Lymphocytes # (1.0-4.8) k/uL Monocytes # (0-1.0) k/uL Eosinophils # (0-0.7) k/uL Basophils # (0-0.2) k/uL PT (9.0-12.0) sec INR (<1.2) APTT (22.0-30.0) sec Sodium (137-145) mmol/L Potassium (3.5-5.1) mmol/L Chloride (98-107) mmol/L Carbon Dioxide (22-30) mmol/L Anion Gap mmol/L BUN (7-17) mg/dL Creatinine (0.52-1.04) mg/dL Est GFR (CKD-EPI)AfAm (>60 ml/min/1.73 sqM) Est GFR (CKD-EPI)NonAf (>60 ml/min/1.73 sqM) Glucose (74-99) mg/dL Calcium (8.4-10.2) mg/dL Magnesium (1.6-2.3) mg/dL Total Bilirubin (0.2-1.3) mg/dL AST (14-36) U/L ALT (9-52) U/L Alkaline Phosphatase (38-126) U/L Troponin I <0.012 (0.000-0.034) ng/mL Total Protein (6.3-8.2) g/dL Albumin (3.5-5.0) g/dL - Radiology Data Radiology results: image reviewed (Chest x-ray shows some peribronchial cuffing, otherwise no acute process) Disposition Clinical Impression: Chest pain Disposition: ADMITTED IP TO THIS HOSP Is patient prescribed a controlled substance at d/c from ED?: No Referrals: Huy Ayers MD [Primary Care Provider] - 1-2 days Decision Time: 14:23
[2019-01-11 13:20] LABS: Basophils # (A) 0.1 k/uL (0-0.2); Basophils % (A) 1 %; Eosinophils # (A) 0.1 k/uL (0-0.7); Eosinophils % (A) 2 %; HGB 12.7 gm/dL (11.4-16.0); Lymphocytes # (A) 1.8 k/uL (1.0-4.8); Lymphocytes % (A) 21 %; MCH 29.1 pg (25.0-35.0); MCHC 33.5 g/dL (31.0-37.0); Mean Platelet Volume 6.4; Monocytes # (A) 0.5 k/uL (0-1.0); Monocytes % (A) 6 %; Neutrophils # (A) 5.9 k/uL (1.3-7.7); Neutrophils % (A) 70 %; Platelet Count 391 k/uL (150-450); RBC 4.37 m/uL (3.80-5.40); WBC 8.5 k/uL (3.8-10.6)
--- NOTE | 2019-01-11 13:32 | XR ---
EXAMINATION TYPE: XR chest 2V DATE OF EXAM: 01/11/2019 COMPARISON: 02/12/2018 HISTORY: 48-year-old female with chest pain TECHNIQUE: PA and lateral views FINDINGS: Heart normal size. Aorta and pulmonary vasculature within normal limits. Mild central peribronchial c uffing. Stable calcified granuloma right upper lobe. Strandy atelectasis at the left base. No consoli dation or pleural effusion. IMPRESSION: Possible bronchitis or asthma. Otherwise, no acute cardiopulmonary process.
[2019-01-11 13:33] LABS: ALT 67 U/L (9-52); AST 44 U/L (14-36); Albumin 5.1 g/dL (3.5-5.0); Alkaline Phosphatase 96 U/L (38-126); Anion Gap 14 mmol/L; Blood Urea Nitrogen 13 mg/dL (7-17); Calcium 10.3 mg/dL (8.4-10.2); Carbon Dioxide 25 mmol/L (22-30); Chloride 101 mmol/L (98-107); Glucose 164 mg/dL (74-99); Magnesium 1.8 mg/dL (1.6-2.3); Potassium 3.6 mmol/L (3.5-5.1); Sodium 140 mmol/L (137-145); Total Bilirubin 0.4 mg/dL (0.2-1.3); Total Protein 8.1 g/dL (6.3-8.2)
[2019-01-11 13:46] LABS: INR 0.9 (<1.2); Prothrombin Time 10.1 sec (9.0-12.0)
[2019-01-11] MEDS ORDERED: NITROGLYCERIN SL TABS 0.4 MG TAB SUBLINGUAL PRN ×2 (14:23→22:18)
[2019-01-11 15:50] VITALS: BMI 40.5
[2019-01-11] MEDS: NITROGLYCERIN OINT 1 INCH/GM PACKET TOPICAL SCH ×2 (21:53→23:41)
[2019-01-11 21:58] LABS: Glucose,Whole Blood 124 mg/dL (75-99)
[2019-01-12 02:18] LABS: Cholesterol 134 mg/dL (<200); HDL Cholesterol 42 mg/dL (40-60); LDL Cholesterol,Calculated 52 mg/dL (0-99); Triglycerides 198 mg/dL (<150)
[2019-01-12] MEDS ORDERED: ISOSORBIDE MONONITRATE ER 30 MG TAB.ER.24H PO SCH (05:00)
[2019-01-12] MEDS ORDERED: EMPAGLIFLOZIN PO SCH (05:00)
[2019-01-12] MEDS ORDERED: CLOPIDOGREL 75 MG TAB PO SCH (05:00)
[2019-01-12] MEDS ORDERED: METFORMIN HCL PO SCH (05:00)
[2019-01-12] MEDS ORDERED: LISINOPRIL-HCTZ 10-12.5 MG 1 EACH TAB PO SCH (05:00)
[2019-01-12] MEDS ORDERED: MULTIVITAMINS, THERA 1 EACH TAB PO SCH (05:00)
[2019-01-12 06:49] LABS: Glucose,Whole Blood 148 mg/dL (75-99)
[2019-01-12] MEDS: NITROGLYCERIN OINT 1 INCH/GM PACKET TOPICAL SCH (07:05)
[2019-01-12] MEDS ORDERED: DOBUTamine DRIP for NUC MED 500 MG in DEXTROSE/WATER 1 250ML.BAG IV ONE (08:53)
[2019-01-12] MEDS ORDERED: amLODIPine 10 MG TAB PO SCH (09:00)
[2019-01-12] MEDS ORDERED: ASPIRIN 325 MG TAB PO SCH (09:00)
[2019-01-12] MEDS ORDERED: ASPIRIN 81 MG PO SCH (09:00)
[2019-01-12] MEDS ORDERED: DESVENLAFAXINE SUCCINATE 50 MG TAB.ER.24H PO SCH (09:00)
--- NOTE | 2019-01-12 09:59 | P.CRDCN ---
History of Present Illness History of present illness: This is a pleasant 48-year-old female past medical history significant for coronary artery disease status post stent placement March 2018 status post abnormal stress echocardiogram in the office, dyslipidemia, hypertension, diabetes mellitus and former nicotine dependence. She follows in the office with Dr. Chappell. We've asked to see her in consultation secondary to chest disco mfort. She states she started feeling a heavy pressure sensation in the midsternal region on Thursday that was intermittent and mild in intensity. She states chest discomfort felt somewhat similar in nature to her symptoms in March however was much less in intensity. Symptoms were with exertion as well as at rest with no specific aggravating or alleviating factor. She took Thursday off work to stay home and rest and continued to have intermittent symptoms throughout the day. She returned to work yesterday and got up to take a walk while she was walking she started feeling acutely short of breath which is abnormal for her. She had no chest discomfort at that time. She is seen and examined sitting up in chair in no acute distress. She is currently chest pain- free and denies any symptoms of dyspnea. She denies palpitations, nausea, vomiting, cough or diaphoresis. EKG reveals sinus mechanism with no acute ST or T wave abnormalities noted. Chest x-ray reveals evidence of bronchitis and possible asthma. No acute cardiopulmonary process noted. Laboratory data reviewed, WBC 8.5, hemoglobin 12.7, platelets 391, sodium 140, potassium 3.6, creatinine 0.71, magnesium 1.8, cardiac enzymes negative negative x3, LDL 52, HDL 42 and triglycerides 198. Current cardiac medications include aspirin 81 mg daily, Plavix 75 mg daily, Imdur 30 mg daily, atorvastatin 80 mg daily, lisinopril/HCTZ 10/12.5 mg daily, Prozac 25 mg twice a day and amlodipine 10 mg daily. Most recent cardiac catheterization from March 2018 revealed significant stenosis of the mid LAD as well as at the bifurcation of the LAD and diagonal branch. She also had 70-80% stenosis on the small nondominant OM branch. At that time she underwent successful stent placement to the mid LAD as well as at the bifurcation of the LAD and diagonal branch with kissing balloons. Most recent echocardiogram obtained February 2018 reveals preserved left ventricular systolic function with ejection fraction 55-60%. At the time of my exam: CONSTITUTIONAL: Denies fever. Denies chills. EYES: Denies blurred vision. Denies vision changes. Denies eye pain. EARS, NOSE, MOUTH & THROAT: Denies headache. Denies sore throat. Denies ear pain. CARDIOVASCULAR: Denies chest pain. Denies shortness of breath. Denies orthopnea. Denies PND. Denies palpitations. RESPIRATORY: Denies cough. GASTROINTESTINAL: Denies abdominal pain. Denies diarrhea. Denies constipation. Denies nausea. Denies vomiting. MUSCULOSKELETAL: Denies myalgias. INTEGUMENTARY: Denies pruitis. Denies rash. NEUROLOGIC: Denies numbness. Denies tingling. Denies weakness. PSYCHIATRIC: Denies anxiety. Denies depression. ENDOCRINE: Denies fatigue. Denies weight change. Denies polydipsia. Denies polyurina. GENITOURINARY: Denies burning, hematuria or urgency with micturation. HEMATOLOGIC: Denies history of anemia. Denies bleeding. Blood pressure 118/79 heart rate 74 afebrile maintaining oxygen saturation on room air GENERAL: This is a 48-year-old female in no apparent distress at the time of my examination. Obese. HEENT: Head is atraumatic, normocephalic. Pupils are equal, round. Sclerae anicteric. Conjunctivae are clear. Mucous membranes of the mouth are moist. Neck is supple. There is no jugular venous distention. No carotid bruit is heard. LUNGS: Clear to auscultation no wheezes, rales or rhonchi. No chest wall tenderness is noted on palpation or with deep breathing. HEART: Regular rate and rhythm without murmurs, rubs or gallops. S1 and S2 heard. ABDOMEN: Soft, nontender. Bowel sounds are heard. No organomegaly noted. EXTREMITIES: No evidence of peripheral edema and no calf tenderness noted. VASCULAR: Radial and dorsalis pedis pulses palpated, no evidence of clubbing. NEUROLOGIC: Patient is awake, alert and oriented x3. ASSESSMENT Precordial chest pain, an acute coronary event has been ruled out. Coronary artery disease status post stent placement Hypertension Dyslipidemia Diabetes mellitus Obesity, BMI 40 Former nicotine dependence PLAN An acute coronary event has been ruled out with no EKG evidence of ischemia negative cardiac enzymes. Obtain 2-D echocardiogram and Doppler study to assess cardiac structure and function. She has a known stenosis of the small nondominant circumflex artery is maintained on oral nitrates. We will perform a dobutamine stress echocardiogram to assess for any stress-induced ischemic changes. Further recommendations to follow based upon clinical course and diagnostic test findings. Thank you kindly for this consultation. Nurse Practitioner note has been reviewed, I agree with a documented findings and plan of care. Patient was seen and examined. Past Medical History Past Medical History: Atrial Fibrillation, Diabetes Mellitus, Hyperlipidemia, Hypertension History of Any Multi-Drug Resistant Organisms: None Reported Past Surgical History: Cholecystectomy, Heart Catheterization With Stent Additional Past Surgical History / Comment(s): PCI with 2 stents Past Anesthesia/Blood Transfusion Reactions: No Reported Reaction Date of Last Stent Placement:: 04/01/18 Smoking Status: Former smoker - Past Family History Father Family Medical History: Chest Pain / Angina Additional Family Medical History / Comment(s): Father has heart problems and pulmonary problems. Mother Family Medical History: Cancer Additional Family Medical History / Comment(s): Mother of esophageal cancer. Medications and Allergies Home Medications Medication Instructions Recorded Confirmed Type Multivitamins, Thera [Multivitamin 1 tab PO DAILY@49902/12/18 01/11/19 History (formulary)] Nitroglycerin Sl Tabs [Nitrostat] 0.4 mg SUBLINGUAL Q5M PRN #1 bottle 04/01/18 01/11/19 Rx Lisinopril-Hctz 10-12.5 mg 1 tab PO DAILY@49904/05/18 01/11/19 History [Zestoretic 10-12.5] Aspirin 81 mg PO DAILY@49901/11/19 01/11/19 History Atorvastatin [Lipitor] 80 mg PO DAILY@1700 01/11/19 01/11/19 History Clopidogrel Bisulfate [Plavix] 75 mg PO DAILY@49901/11/19 01/11/19 History Desvenlafaxine Succinate [Pristiq 50 mg PO DAILY 01/11/19 01/11/19 History ER] Empagliflozin/Metformin HCl 1 tab PO DAILY@49901/11/19 01/11/19 History [Synjardy Xr 12.5-1,000 mg Tab] Isosorbide Mononitrate ER [Imdur] 30 mg PO DAILY@49901/11/19 01/11/19 History Metoprolol Tartrate [Lopressor] 25 mg PO BID@0500,1700 01/11/19 01/11/19 History amLODIPine [Norvasc] 10 mg PO DAILY 01/11/19 01/11/19 History Allergies Allergy/AdvReac Type Severity Reaction Status Date / Time No Known Allergies Allergy Verified 01/11/19 12:45 Physical Exam Vitals: Vital Signs Temp Pulse Pulse Resp BP BP Pulse Ox 01/12/19 08:00 97.8 F 74 18 118/79 98 01/12/19 04:00 98.1 F 74 16 123/76 99 01/12/19 03:57 16 01/12/19 00:00 97.6 F 94 16 94/55 97 01/11/19 22:15 18 01/11/19 21:25 97.6 F 76 18 118/78 95 01/11/19 21:00 90 16 120/85 98 01/11/19 19:00 97.9 F 100 18 125/86 97 01/11/19 16:00 79 18 123/83 98 01/11/19 15:00 87 18 117/84 97 01/11/19 13:30 89 18 116/78 98 01/11/19 12:16 97.7 F 89 20 158/77 97 Intake and Output 01/11/19 01/12/19 01/12/19 22:59 06:59 14:59 Other: Voiding Method Toilet Toilet # Voids 2 1 Results 01/11/19 13:00 01/11/19 13:00 Cardiac Enzymes 01/11/19 01/11/19 01/11/19 Range/Units 13:00 13:00 19:04 AST 44 H (14-36) U/L Troponin I <0.012 <0.012 (0.000-0.034) ng/mL 01/12/19 Range/Units 00:46 AST (14-36) U/L Troponin I <0.012 (0.000-0.034) ng/mL Coagulation 01/11/19 Range/Units 13:00 PT 10.1 (9.0-12.0) sec APTT 23.0 (22.0-30.0) sec Lipids 01/11/19 Range/Units 13:00 Triglycerides 198 H (<150) mg/dL Cholesterol 134 (<200) mg/dL HDL Cholesterol 42 (40-60) mg/dL CBC 01/11/19 Range/Units 13:00 WBC 8.5 (3.8-10.6) k/uL RBC 4.37 (3.80-5.40) m/uL Hgb 12.7 (11.4-16.0) gm/dL Hct 38.0 (34.0-46.0) % Plt Count 391 (150-450) k/uL Comprehensive Metabolic Panel 01/11/19 Range/Units 13:00 Sodium 140 (137-145) mmol/L Potassium 3.6 (3.5-5.1) mmol/L Chloride 101 (98-107) mmol/L Carbon Dioxide 25 (22-30) mmol/L BUN 13 (7-17) mg/dL Creatinine 0.71 (0.52-1.04) mg/dL Glucose 164 H (74-99) mg/dL Calcium 10.3 H (8.4-10.2) mg/dL AST 44 H (14-36) U/L ALT 67 H (9-52) U/L Alkaline Phosphatase 96 (38-126) U/L Total Protein 8.1 (6.3-8.2) g/dL Albumin 5.1 H (3.5-5.0) g/dL Current Medications Generic Name Dose Route Start Last Admin Trade Name Freq PRN Reason Stop Dose Admin Amlodipine Besylate 10 mg 01/12/19 09:00 Norvasc PO DAILY [facility] Aspirin 81 mg 01/12/19 09:00 Aspirin PO DAILY [facility] Atorvastatin Calcium 80 mg 01/12/19 17:00 Lipitor PO DAILY@1700 [facility] Clopidogrel Bisulfate 75 mg 01/12/19 05:00 01/12/19 07:30 Plavix PO 75 mg DAILY@0500 [facility] Administration Desvenlafaxine Succinate 50 mg 01/12/19 09:00 Pristiq Er PO DAILY [facility] Lisinopril/HCTZ 1 each 01/12/19 05:00 Zestoretic 10-12.5 PO DAILY@0500 [facility] Dobutamine HCl/Dextrose 500 mg 250 mls @ 32.114 mls/hr 01/12/19 08:53 / IV Solution IV 01/12/19 16:40 .Q7H48M ONE Protocol 10 MCG/KG/MIN Isosorbide Mononitrate 30 mg 01/12/19 05:00 Imdur PO DAILY@0500 [facility] Metoprolol Tartrate 25 mg 01/12/19 05:00 Lopressor PO BID@0500,1700 [facility] Multivitamins 1 each 01/12/19 05:00 01/12/19 07:30 Theragran PO 1 each DAILY@0500 [facility] Administration Nitroglycerin 0.4 mg 01/11/19 14:23 Nitrostat SUBLINGUAL Q5M PRN Chest Pain Nitroglycerin 0.4 mg 01/11/19 22:18 Nitrostat SUBLINGUAL Q5M PRN Chest Pain Empagliflozin/ 1 tab 01/12/19 05:00 Metformin Hcl [ PO Synjardy Xr 12.5-1, DAILY@0500 [facility] 000 Mg Tab] Sodium Chloride 10 ml 01/11/19 21:00 01/11/19 22:47 Saline Flush IV 10 ml BID [facility] Administration Intake and Output 01/11/19 01/12/19 01/12/19 22:59 06:59 14:59 Other: Voiding Method Toilet Toilet # Voids 2 1 01/11/19 13:00 01/11/19 13:00
--- NOTE | 2019-01-12 11:26 | ECHOF ---
Referral Reason:cp, sob MEASUREMENTS -------- HEIGHT: 162.6 cm WEIGHT: 107.0 kg BP: 118/78 RVIDd: 2.8 cm (< 3.3) IVSd: 1.2 cm (0.6 - 1.1) LVIDd: 4.3 cm (3.9 - 5.3) LVPWd: 1.2 cm (0.6 - 1.1) IVSs: 1.6 cm LVIDs: 2.9 cm LVPWs: 1.7 cm LA Diam: 3.4 cm (2.7 - 3.8) LAESV Index (A-L): 13.57 ml/m Ao Diam: 3.2 cm (2.0 - 3.7) AV Cusp: 1.9 cm (1.5 - 2.6) MV EXCURSION: 13.991 mm (> 18.000) MV EF SLOPE: 54 mm/s (70 - 150) EPSS: 1.1 cm MV E Edward: 0.85 m/s MV DecT: 249 ms MV A Edward: 0.81 m/s MV E/A Ratio: 1.06 FINDINGS -------- Sinus rhythm. This was a technically adequate study. The left ventricular size is normal. There is borderline concentric left ventricular hypertrophy. Overall left ventricular systolic function is normal with, an EF between 60 - 65 %. The right ventricle is normal in size. Normal LA size by volume 22+/-6 ml/m2. The right atrium is normal in size. The aortic valve is trileaflet and appears structurally normal. The mitral valve is normal. The tricuspid valve appears structurally normal. There is no pulmonic regurgitation present. The aortic root size is normal. Normal inferior vena cava with normal inspiratory collapse consistent with estimated right atrial pre ssure of 5 mmHg. There is no pericardial effusion. CONCLUSIONS -------- 1. Sinus rhythm. 2. This was a technically adequate study. 3. The left ventricular size is normal. 4. There is borderline concentric left ventricular hypertrophy. 5. Overall left ventricular systolic function is normal with, an EF between 60 - 65 %. 6. The right ventricle is normal in size. 7. Normal LA size by volume 22+/-6 ml/m2. 8. The right atrium is normal in size. 9. The aortic valve is trileaflet and appears structurally normal. 10. The mitral valve is normal. 11. The tricuspid valve appears structurally normal. 12. There is no pulmonic regurgitation present. 13. The aortic root size is normal. 14. Normal inferior vena cava with normal inspiratory collapse consistent with estimated right atrial pressure of 5 mmHg. 15. There is no pericardial effusion. SENIOR IT ENGINEER: Dee Dee RDCS
--- NOTE | 2019-01-12 11:59 | P.STRESS ---
- Stress Test Note Stress Test Results/Findings: Exam Performed: dobutamine stress echo Exam Date: 01/12/19 Reason for Exam: CHEST PAIN Height: 5 ft 4 in Weight: 107.048 kg Protocol: DOBUTAMINE STRESS ECHO Stage: 2 Duration of Exercise: 5:48 MINUTES Resting Heart Rate: 91 Resting Blood Pressure: 136/92 Maximum Achieved Heart Rate: 153 Maximum Achieved Blood Pressure: 154/49 85% PMHR: 147 100% PMHR: 173 METS: N/A Technologist Comment: Stress Test Results/Findings: Baseline 191 beats a minute, Baseline blood pressure 136/92 mmHg Patient received dobutamine infusion up to 20 mics. There is no ECG is for ischemia PVCs, outflow tract morphology were noted No nonsustained atrial tachycardia normal blood pressure response to dobutamine infusion There is no ECG and stress ischemia No nonsustained arrhythmias noted Baseline 2-D echo images showed normal LV systolic function without segmental wall motion abnormalities With 10 and 20 mics of dobutamine infusion there was augmentation overall LV contractility without any wall motion amenities At recovery region global LV systolic function remain normal Impression dobutamine stress echo utilized only up to 20 mics of dobutamine No ECG evidence for ischemia based upon this stress echo
[2019-01-12 12:04] LABS: Glucose,Whole Blood 119 mg/dL (75-99)
[2019-01-12] MEDS: METOPROLOL TARTRATE 25 MG TAB PO SCH ×2 (12:07→18:00)
--- NOTE | 2019-01-12 15:49 | HP ---
HISTORY AND PHYSICAL DATE OF ADMISSION: 01/11/2019 DATE OF SERVICE: 01/12/2019 PRESENTING COMPLAINT: Chest pain. HISTORY OF PRESENTING COMPLAINT: This is a pleasant 48-year-old patient of Dr. Huy Ayers and horse breaker Dr. Arvind Chappell. Chronic stable medical conditions include diabetes, hypertension, hyperlipidemia. The patient did have a stent placed in March of 2018. She also has a history of atrial fibrillation. The patient on Thursday was walking and developed tightness across the chest that lasted for well over 20 minutes. There was no radiation. Some shortness of breath, perspiration. No dizziness or lightheadedness. The patient finally decided to come in yesterday and was admitted for unstable angina. Cardiology was consulted. Stress test was ordered. REVIEW OF SYSTEMS: CONSTITUTIONAL: None. HEENT: None. RESPIRATORY: As above. CARDIOVASCULAR: As above. GASTROINTESTINAL: None. GENITOURINARY: None. MUSCULOSKELETAL: None. DERMATOLOGICAL: None. HEMATOLOGICAL: None. LYMPHATICS: None. PSYCHIATRY: None. NEUROLOGICAL: None. PAST MEDICAL HISTORY: 1. Atrial fibrillation. 2. Diabetes. 3. Hyperlipidemia. 4. Hypertension. 5. Coronary artery disease with stent. PAST SURGICAL HISTORY: 1. Cholecystectomy. 2. Coronary artery disease with stents x2. PSYCH HISTORY: Anxiety, depression. SOCIAL HISTORY: The patient is , works in finance as director for [employer]. Alcohol occasionally. Smoked for 29 years, stopped in 2011. FAMILY HISTORY: Heart and pulmonary problems. HOME MEDICATIONS: 1. Pristiq ER 50 mg p.o. daily. 2. Norvasc 10 mg p.o. daily. 3. Multivitamin 1 tablet p.o. daily. 4. Lopressor 25 mg b.i.d. 5. Zestoretic 10/12.5 one tablet p.o. daily. 6. Synjardy XR 12.01/1000 one tablet p.o. daily. 7. Plavix 75 mg daily. 8. Lipitor 80 mg daily. 9. Aspirin 81 mg daily. 10.Nitrostat 0.4 sublingually q.5 p.r.n. 11.Imdur ER 30 mg p.o. daily. ALLERGIES: NONE. PHYSICAL EXAMINATION: VITAL SIGNS: Temperature 97.8, pulse 94, respiration 18, blood pressure 118/79, pulse ox 98% on room air. GENERAL APPEARANCE: Well built; BMI 40.5. Lying in bed. Comfortable. EYES: Pupils equal. Conjunctivae normal. HEENT: External appearance of nose and ears normal. Oral cavity normal. NECK: JVD not raised. Mass not palpable. RESPIRATORY: Effort normal. Lungs are clear. CARDIOVASCULAR: First and second sounds normal. No edema. ABDOMEN: Soft, non-tender. Liver and spleen not palpable. LYMPHATIC: No lymph node palpable in neck or axillae. PSYCHIATRY: Alert and oriented x3. Mood and affect normal. NEUROLOGICAL: Pupils equal. Cranial nerves grossly intact. Power and sensation grossly intact. INVESTIGATIONS: White count 8.5, hemoglobin 12.7, platelets 391. Potassium 3.6. BUN and creatinine normal. Troponin x3 negative. LDL is 52. EKG tracing, personally reviewed by me, shows normal sinus rhythm. Chest x-ray film, personally reviewed by me, shows no obvious infiltrates. ASSESSMENT: 1. Possible unstable angina in a patient with known coronary artery disease. 2. Paroxysmal atrial fibrillation, currently in sinus rhythm. 3. Diabetes mellitus, type 2, on oral hypoglycemic. 4. Essential hypertension. 5. Hyperlipidemia. 6. Morbid obesity; body mass index 40.5. PLAN: Home medications are resumed. Cardiology was consulted, who ordered a stress test. Care was discussed with the patient. Will follow. MMODL / IJN: [id number] /
[2019-01-12 16:38] LABS: Glucose,Whole Blood 141 mg/dL (75-99)
[2019-01-12] MEDS ORDERED: ATORVASTATIN 40 MG TAB PO SCH (17:00)
[2019-01-12 19:13] VITALS: BP 116/74; PULSE 74; RESP 15; TEMP 97.4
--- NOTE | 2019-01-13 09:24 | DS ---
DISCHARGE SUMMARY DATE OF ADMISSION: 01/11/2019 DATE OF DISCHARGE: 01/12/2019 FINAL DIAGNOSES: 1. Anterior chest wall pain, could be musculoskeletal. 2. Paroxysmal atrial fibrillation, currently in sinus rhythm. 3. Diabetes mellitus, type 2, on oral hypoglycemic. 4. Essential hypertension. 5. Hyperlipidemia. 6. Morbid obesity, body mass index 40.5. CONSULTATION: Dr. Jamey Lantigua from Cardiology. HOSPITAL COURSE: This patient with known coronary artery disease presented with chest pain, did undergo a dobutamine stress echocardiogram, negative for ischemia. The patient was therefore discharged. A 2-D echocardiogram showed preserved LV function. On examination, temperature 97.4, pulse 74, respirations 15, blood pressure 116/74, pulse ox 99% on room air. LUNGS: Clear. CARDIOVASCULAR: First and second sounds normal. DISCHARGE MEDICATIONS: 1. Multivitamin 1 tablet p.o. daily. 2. Nitrostat 0.4 sublingual q.5 p.r.n. 3. Zestoretic 10/12.5 one tablet p.o. daily. 4. Aspirin 81 mg daily. 5. Lipitor 80 mg p.o. daily. 6. Plavix 75 mg p.o. daily. 7. Pristiq ER 50 mg p.o. daily. 8. Synjardy XR 12.01/1000 one tablet p.o. daily. 9. Imdur ER 30 mg p.o. daily. 10.Lopressor 25 mg p.o. b.i.d. 11.Norvasc 10 mg p.o. daily. Follow up with Dr. Huy Ayers in one week. Follow up with Dr. Arvind Chappell in one week. MMODL / IJN: [id number] /
== END 2019-01-12 21:56 | disposition home or self-care (01) ==
LOC: EC 12:12 → 1SOBS 14:23
PROVIDERS: ADMIT Hospitalist; ATTEND Hospitalist
DX: R07.89 Other chest pain (principal); R07.2 Precordial pain; R06.02 Shortness of breath; R06.00 Dyspnea, unspecified; R61 Generalized hyperhidrosis; I48.0 Paroxysmal atrial fibrillation; I10 Essential (primary) hypertension; E78.5 Hyperlipidemia, unspecified; E11.9 Type 2 diabetes mellitus without complications; F41.9 Anxiety disorder, unspecified; F32.9 Major depressive disorder, single episode, unspecified; I25.10 Atherosclerotic heart disease of native coronary artery without angina pectoris; E66.01 Morbid (severe) obesity due to excess calories; Z68.41 Body mass index [BMI] 40.0-44.9, adult; Z87.891 Personal history of nicotine dependence; Z79.899 Other long term (current) drug therapy; Z95.5 Presence of coronary angioplasty implant and graft; Z79.82 Long term (current) use of aspirin; Z79.02 Long term (current) use of antithrombotics/antiplatelets; Z79.84 Long term (current) use of oral hypoglycemic drugs; Z90.49 Acquired absence of other specified parts of digestive tract; Z80.0 Family history of malignant neoplasm of digestive organs
CPT/HCPCS: 99285; 36415; 93005; 93306; 93351; 80061; 80053; 84443; 83735; 84484 ×2; 85025; 85610; 85730; 71046; G0378 ×2; J1250

== ENCOUNTER → 2019-07-15 | Outpatient (CLI) | payer BC ==
--- NOTE | 2019-07-18 11:50 | MM ---
Reason for exam: screening (asymptomatic). Last mammogram was performed 1 year and 3 months ago. History: Patient is postmenopausal. Family history of breast cancer in paternal grandmother. Physical Findings: A clinical breast exam by your physician is recommended on an annual basis and results should be correlated with mammographic findings. MG 3D Screening Mammo W/Cad Bilateral CC and MLO view(s) were taken. LM view(s) were taken of the left breast. Prior study comparison: April 12, 2018, left breast MG work up mamm w CAD LT. April 12, 2018, bilateral MG screening mammo w CAD. There are scattered fibroglandular densities. There is no discrete abnormality. No significant changes when compared with prior studies. ASSESSMENT: Negative, BI-RAD 1 RECOMMENDATION: Routine screening mammogram of both breasts in 1 year.
== END | disposition home or self-care (01) ==
LOC: RADMAMWWP 14:43
PROVIDERS: ATTEND Family Medicine
DX: Z12.31 Encounter for screening mammogram for malignant neoplasm of breast (principal)
CPT/HCPCS: 77063; 77067

== ENCOUNTER → 2020-04-02 | Outpatient (CLI) | payer BC ==
[2020-04-02 08:01] LABS: Basophils # (A) 0.1 k/uL (0-0.2); Basophils % (A) 1 %; Eosinophils # (A) 0.1 k/uL (0-0.7); Eosinophils % (A) 2 %; HCT 39.9 % (34.0-46.0); HGB 13.3 gm/dL (11.4-16.0); Lymphocytes # (A) 2.7 k/uL (1.0-4.8); Lymphocytes % (A) 29 %; MCHC 33.5 g/dL (31.0-37.0); MCV 89.8 fL (80.0-100.0); Mean Platelet Volume 6.7; Monocytes # (A) 0.5 k/uL (0-1.0); Monocytes % (A) 6 %; Neutrophils # (A) 5.8 k/uL (1.3-7.7); Neutrophils % (A) 62 %; Platelet Count 353 k/uL (150-450); RBC 4.44 m/uL (3.80-5.40); RDW 13.1 % (11.5-15.5); WBC 9.4 k/uL (3.8-10.6)
[2020-04-02 12:35] LABS: African American GFR (CKD) 118.7 (60.0-200.0); Albumin 4.7 g/dL (3.80-4.90); Albumin/Globulin Ratio 2.24 (1.60-3.17); Anion Gap 9.4 mmol/L (4.00-12.00); BUN/Creat Ratio 18.57 Ratio (12.00-20.00); Calcium 9.8 mg/dL (8.7-10.3); Carbon Dioxide 25.6 mmol/L (21.6-31.8); Chol/HDL Ratio 2.93; Globulin 2.1 g/dL (1.6-3.3); LDL Cholesterol,Calculated 41.6 mg/dL (0.0-131.0); Non-African American GFR(CKD) 102.5 (60.0-200.0); Potassium 4.2 mmol/L (3.5-5.5); Total Bilirubin 0.3 mg/dL (0.2-1.2); Total Protein 6.8 g/dL (6.2-8.2); VLDL Calculation 41.4 mg/dL (5.00-40.00)
== END | disposition home or self-care (01) ==
LOC: LABWHC1 07:19
PROVIDERS: ATTEND Family Medicine
DX: E78.5 Hyperlipidemia, unspecified (principal)
CPT/HCPCS: 36415; 80053; 80061; 82550; 85025

== ENCOUNTER → 2020-11-14 | Outpatient (CLI) | payer BC ==
--- NOTE | 2020-11-16 11:47 | MM ---
Reason for exam: screening (asymptomatic). Last mammogram was performed 1 year and 4 months ago. History: Patient is postmenopausal. Family history of breast cancer in paternal grandmother. Physical Findings: A clinical breast exam by your physician is recommended on an annual basis and results should be correlated with mammographic findings. MG 3D Screening Mammo W/Cad Bilateral CC and MLO view(s) were taken. Prior study comparison: July 15, 2019, bilateral MG 3d screening mammo w/cad. April 12, 2018, left breast MG work up mamm w CAD LT. There are scattered fibroglandular densities. No significant changes when compared with prior studies. ASSESSMENT: Negative, BI-RAD 1 RECOMMENDATION: Routine screening mammogram of both breasts in 1 year.
== END | disposition home or self-care (01) ==
LOC: RADMAMWWP 14:13
PROVIDERS: ATTEND Family Medicine
DX: Z12.31 Encounter for screening mammogram for malignant neoplasm of breast (principal)
CPT/HCPCS: 77063; 77067

== ENCOUNTER → 2021-02-18 | Outpatient (CLI) | payer BC ==
--- NOTE | 2021-02-18 09:06 | US ---
EXAMINATION TYPE: US abdomen complete DATE OF EXAM: 02/18/2021 COMPARISON: CT 04/12/18 CLINICAL HISTORY: R74.01 elevated liver enzymes. EXAM MEASUREMENTS: Liver Length: 20.0 cm Gallbladder Wall: Surgically absent cm CBD: 1.0 cm Spleen: 11.6 cm Right Kidney: 12.8 x 5.3 x 4.9 cm Left Kidney: 12.6 x 6.0 x 5.1 cm Pancreas: Tail obscured by overlying bowel gas Liver: Enlarged, Increased attenuation, decreased visualization of vessels suggestive of fatty infil trate Gallbladder: Surgically absent Evidence for sonographic Cardoza's sign: No CBD: wnl for post cholecystectomy Spleen: wnl Right Kidney: No hydronephrosis or masses seen Left Kidney: No hydronephrosis or masses seen Upper IVC: Partially Obscured by overlying bowel gas Abd Aorta: wnl The liver is heterogeneous. The intrahepatic portion of the IVC and proximal abdominal aorta are wit hin normal limits. Common bile duct is prominent, consistent with postoperative status. The visuali zed portions of the pancreas are unremarkable. The spleen is unremarkable. Kidneys are symmetric an d free of hydronephrosis. No renal lesions are seen. IMPRESSION: Enlarged, heterogeneous liver with poor penetration and increased echogenicity is nonspecific but mos t commonly seen with hepatic steatosis. This limits the ability to detect a mass, however, no definit e mass is seen.
== END | disposition home or self-care (01) ==
LOC: RADUSWWP 07:29
PROVIDERS: ATTEND Family Medicine
DX: K76.0 Fatty (change of) liver, not elsewhere classified (principal); R16.0 Hepatomegaly, not elsewhere classified
CPT/HCPCS: 76700

== ENCOUNTER → 2021-12-18 | Outpatient (CLI) | payer BC ==
--- NOTE | 2021-12-19 12:57 | MM ---
Reason for exam: screening (asymptomatic). Last mammogram was performed 1 year and 1 month ago. History: Patient is postmenopausal. Family history of breast cancer in maternal grandmother and breast cancer in paternal grandmother. Physical Findings: A clinical breast exam by your physician is recommended on an annual basis and results should be correlated with mammographic findings. MG 3D Screening Mammo W/Cad Bilateral CC and MLO view(s) were taken. Technologist: RT Marcia (R)(M) Prior study comparison: November 14, 2020, bilateral MG 3d screening mammo w/cad. July 15, 2019, bilateral MG 3d screening mammo w/cad. There are scattered fibroglandular densities. There is no discrete abnormality. ASSESSMENT: Negative, BI-RAD 1 RECOMMENDATION: Routine screening mammogram of both breasts in 1 year.
== END | disposition home or self-care (01) ==
LOC: RADMAMWWP 10:15
PROVIDERS: ATTEND Family Medicine
DX: Z12.31 Encounter for screening mammogram for malignant neoplasm of breast (principal); Z78.0 Asymptomatic menopausal state; Z80.3 Family history of malignant neoplasm of breast
CPT/HCPCS: 77063; 77067

== ENCOUNTER → 2022-12-19 | Outpatient (CLI) | payer BC ==
--- NOTE | 2022-12-19 12:55 | MM ---
Reason for Exam: Screening (asymptomatic). Last screening mammogram was performed 12 month(s) ago. Patient History: Menarche at age 13. First Full-Term at age 21. Postmenopausal. Paternal grandmother had breast cancer, age 65. Maternal grandmother had breast cancer, age 70. Risk Values: Marcia 5 year model risk: 0.9%. NCI Lifetime model risk: 7.9%. Prior Study Comparison: 07/15/2019 Bilateral Screening Mammogram, [facility]. 11/14/2020 Bilateral Screening Mammogram, [facility]. 12/18/2021 Bilateral Screening Mammogram, [facility]. Tissue Density: There are scattered fibroglandular densities. Findings: Analyzed By CAD. There is no suspicious group of microcalcifications or new suspicious mass in either breast. Overall Assessment: Negative, BI-RAD 1 Management: Screening Mammogram of both breasts in 1 year. A clinical breast exam by your physician is recommended on an annual basis and results should be correlated with mammographic findings. Electronically signed and approved by: Luis Alberto Do D.O.
== END | disposition home or self-care (01) ==
LOC: RADMAMWWP 10:06
PROVIDERS: ATTEND Family Medicine
DX: Z12.31 Encounter for screening mammogram for malignant neoplasm of breast (principal); Z78.0 Asymptomatic menopausal state; Z80.3 Family history of malignant neoplasm of breast
CPT/HCPCS: 77063; 77067

== ENCOUNTER → 2024-08-12 | Outpatient (CLI) | payer BC ==
[2024-08-12 15:39] LABS: Basophils # (A) 0.12 X 10*3/uL (0.00-0.10); Eosinophils # (A) 0.25 X 10*3/uL (0.04-0.35); Eosinophils % (A) 2.1 %; HCT 36.5 % (37.2-46.3); HGB 12.4 g/dL (12.0-15.0); Lymphocytes # (A) 3.63 X 10*3/uL (0.90-5.00); Lymphocytes % (A) 30.2 %; MCH 31.2 pg (27.0-32.0); MCV 91.7 FL (80.0-97.0); Mean Platelet Volume 9.3 FL (9.5-12.2); Monocytes # (A) 0.66 X 10*3/uL (0.20-1.00); Monocytes % (A) 5.5 %; NRBC Per 100 WBC 0 X 10*3/uL (0.00-0.01); Neutrophils # (A) 7.31 X 10*3/uL (1.80-7.70); Neutrophils % (A) 60.8 %; Platelet Count 373 X 10*3/uL (140-440); RBC 3.98 X 10*6/uL (4.10-5.20); RDW 11.7 % (11.5-14.5); WBC 12.02 X 10*3/uL (4.50-10.00)
[2024-08-12 15:55] LABS: Creatine Kinase 35 U/L (26-186)
[2024-08-12 15:56] LABS: ALT 30 U/L (8-44); AST 24 U/L (13-35); Albumin 4.4 g/dL (3.8-4.9); Albumin/Globulin Ratio 1.91 Ratio (1.60-3.17); Alkaline Phosphatase 97 U/L (41-126); Blood Urea Nitrogen 17.9 mg/dL (9.0-27.0); Calcium 9.7 mg/dL (8.7-10.3); Carbon Dioxide 24.6 mmol/L (21.6-31.8); Chloride 105 mmol/L (96-109); Chol/HDL Ratio 3.52 Ratio; Globulin 2.3 g/dL (1.6-3.3); Glucose 111 mg/dL (70-110); LDL Cholesterol,Calculated 58.8 mg/dL (0.0-131.0); Potassium 4.2 mmol/L (3.5-5.5); Sodium 142 mmol/L (135-145); T4, Free (Free Thyroxine) 1.31 ng/dL (0.80-1.80); Total Bilirubin 0.3 mg/dL (0.3-1.2); Total Protein 6.7 g/dL (6.2-8.2)
--- NOTE | 2024-08-15 11:22 | MM ---
Reason for Exam: Screening (asymptomatic). Last mammogram was performed 1 year(s) and 8 month(s) ago. Patient History: Menarche at age 13. First Full-Term at age 21. Postmenopausal. Hormonal Contraceptives, starting at age 21 for 4 years. Paternal grandmother had breast cancer, age 65. Maternal grandmother had breast cancer, age 70. Risk Values: Marcia 5 year model risk: 1.0%. NCI Lifetime model risk: 7.7%. Prior Study Comparison: 11/14/2020 Bilateral Screening Mammogram, [facility]. 12/18/2021 Bilateral Screening Mammogram, [facility]. 12/19/2022 Bilateral MG 3D screening mammo w/cad, [facility]. Tissue Density: The breasts are almost entirely fatty. Findings: Analyzed By CAD. Right breast: There is no suspicious group of microcalcifications or new suspicious mass. Left breast: There is no suspicious group of microcalcifications or new suspicious mass. Overall Assessment: Negative, BI-RAD 1 Management: Screening Mammogram of both breasts in [address] [facility] will attempt to contact patient to return for supplemental views and ultrasound if indicated. Patient should continue monthly self-breast exams. A clinical breast exam by your physician is recommended on an annual basis. This exam should not preclude additional follow-up of suspicious palpable abnormalities. Note on Marcia scores and lifetime risk: 1. A Marcia score greater than 3% is considered moderate risk. If this is the case, consider specialist referral to assess eligibility for a risk reducing agent. 2. If overall lifetime risk for the development of breast cancer is 20% or higher, the patient may qualify for future screening with alternating mammogram and breast MRI. [facility], , 08/15/2024 11:19 AM. Electronically signed and approved by: Cristobal Landry DO
== END | disposition home or self-care (01) ==
LOC: RADMAMWWP 07:38
PROVIDERS: ATTEND Family Medicine
DX: Z12.31 Encounter for screening mammogram for malignant neoplasm of breast (principal); E11.9 Type 2 diabetes mellitus without complications; I10 Essential (primary) hypertension; E78.5 Hyperlipidemia, unspecified; Z78.0 Asymptomatic menopausal state; Z80.3 Family history of malignant neoplasm of breast
CPT/HCPCS: 77063; 77067; 80053; 80061; 82043; 82550; 82570; 84439; 84443; 85025